=== PATIENT | male | born 1950 | race Caucasian/White ===

== ENCOUNTER 2024-10-08 08:55 | Observation (INO) ==
--- NOTE | 2024-10-08 09:10 | DR.GENAD ---
HPI Time Seen Time Seen by Provider: 10/08/24 09:05 HPI Comment HPI Comment: History as below. COVID-19 Coronavirus risk:travel/contact w/high risk person: No Has patient experienced Coronavirus symptoms: No Nurses notes reviewed Nurses Notes Review: Yes PMH Travel Risk Coronavirus risk:travel/contact w/high risk person: No Has patient experienced Coronavirus symptoms: No PE Vital Signs Vitals: Vital Signs Temperature 98.1 F Pulse Rate 102 Respiratory Rate 22 Blood Pressure 143/62 O2 Sat by Pulse Oximetry 98 ROR Labs Reviewed 10/08/24 09:35 10/08/24 11:58 Laboratory: WBC 19.0 X10^3/uL (3.6-10.0) H 10/08/24 09:35 RBC 3.85 X10^6/uL (4.7-6.0) L 10/08/24 09:35 Hgb 12.2 g/dL (13.5-18.0) L 10/08/24 09:35 Hct 36.4 % (42.0-54.0) L 10/08/24 09:35 MCV 94.6 fL (80.0-100.0) 10/08/24 09:35 MCH 31.7 pg (27.0-34.0) 10/08/24 09:35 MCHC 33.5 g/dL (33.0-35.0) 10/08/24 09:35 RDW 13.4 % (11.6-16.5) 10/08/24 09:35 Plt Count 407 X10^3/uL (150.0-450.0) 10/08/24 09:35 MPV 9.1 fL (7.4-11.0) 10/08/24 09:35 Neut % (Auto) 75.3 % (42.0-75.0) H 10/08/24 09:35 Lymph % (Auto) 9.5 % (21.0-51.0) L 10/08/24 09:35 [place] % (Auto) 12.8 % (0.0-13.0) 10/08/24 09:35 Eos % (Auto) 1.7 % (0.9-2.9) 10/08/24 09:35 Baso % (Auto) 0.7 % (0.2-1.0) 10/08/24 09:35 Neut # (Auto) 14.3 x10^3/uL (2.2-4.8) H 10/08/24 09:35 Lymph # (Auto) 1.8 X10^3/uL (1.3-2.9) 10/08/24 09:35 [place] # (Auto) 2.4 x10^3/uL (0.3-0.8) H 10/08/24 09:35 Eos # (Auto) 0.3 x10^3/uL (0.0-0.2) H 10/08/24 09:35 Baso # (Auto) 0.1 X10^3/uL (0.0-0.1) 10/08/24 09:35 Absolute Nucleated RBC 0.1 /100WBC 10/08/24 09:35 Sodium 122 mmol/L (136-145) L* 10/08/24 09:35 Corrected Sodium 136 mmol/L (136-145) 10/08/24 09:35 Potassium 5.5 mmol/L (3.5-5.1) H 10/08/24 09:35 Chloride 86 mmol/L (98-107) L 10/08/24 09:35 Carbon Dioxide 27.9 mmol/L (21-32) 10/08/24 09:35 BUN 54 mg/dL (7-18) H 10/08/24 09:35 Creatinine 2.83 mg/dL (0.70-1.30) H 10/08/24 09:35 Est GFR (MDRD) Af Amer 28 (>60) L 10/08/24 09:35 Est GFR (MDRD) Non-Af 23 (>60) L 10/08/24 09:35 Glucose 628 mg/dL (65-99) H* 10/08/24 11:58 POC Glucose (mg/dL) 588 mg/dL (65-99) H* 10/08/24 11:50 Calcium 10.3 mg/dL (8.5-10.1) H 10/08/24 09:35 Corrected Calcium 11.0 mg/dL (8.5-10.1) H 10/08/24 09:35 Magnesium 1.9 mg/dL (2.0-2.9) L 10/08/24 09:35 Total Bilirubin 0.40 mg/dL (0.2-1.0) 10/08/24 09:35 AST 16 Units/L (15-37) 10/08/24 09:35 ALT 20 Units/L (12-78) 10/08/24 09:35 Alkaline Phosphatase 131 Units/L (46-116) H 10/08/24 09:35 B-Natriuretic Peptide 51.7 pg/mL (0-79) 10/08/24 09:35 Total Protein 7.0 g/dL (6.4-8.2) 10/08/24 09:35 Albumin 3.1 g/dL (3.4-5.0) L 10/08/24 09:35 Globulin 3.9 g/dL (2.5-4.5) 10/08/24 09:35 Albumin/Globulin Ratio 0.8 Ratio (1.1-2.1) L 10/08/24 09:35 Specimen Type Catherized urine 10/08/24 09:30 Urine Color Straw (YELLOW) 10/08/24 09:30 Urine Appearance Clear (CLEAR) 10/08/24 09:30 Urine pH 5.0 (5.0 - 8.0) 10/08/24 09:30 Ur Specific [place] 1.015 (1.000-1.030) 10/08/24 09:30 Urine Protein 1+ (NEGATIVE) 10/08/24 09:30 Urine Glucose (UA) 4+ (NEGATIVE) 10/08/24 09:30 Urine Ketones Negative (NEGATIVE) 10/08/24 09:30 Urine Blood Negative (NEGATIVE) 10/08/24 09:30 Urine Nitrite Negative (NEGATIVE) 10/08/24 09:30 Urine Bilirubin Negative (NEGATIVE) 10/08/24 09:30 Urine Urobilinogen Normal (NORMAL) 10/08/24 09:30 Ur Leukocyte Esterase Negative (NEGATIVE) 10/08/24 09:30 Urine RBC None seen /HPF (0-3) 10/08/24 09:30 Urine WBC 0-2 /HPF (0-5) 10/08/24 09:30 Ur Squamous Epith Cells Rare /HPF (NEGATIVE) 10/08/24 09:30 Urine Bacteria Negative /HPF (NEGATIVE) 10/08/24 09:30 Ur Culture Indicated? No/not indicated 10/08/24 09:30 Acetone, Semi-Quant Small (NEGATIVE) H 10/08/24 10:52 Opioid Opioid Risk Tool Age (Saul box if 16-45): No History of Preadolescent Sexual Abuse: No Total: 0 Total Score Risk Category: Low Risk Copyright: Hank SANCHEZ predicting aberrant behaviors Discharge Plan Diagnosis Discharge Problem: Hyperosmolar hyperglycemic state (HHS), Hyponatremia, Leukocytosis, Urinary retention Discharge Plan Patient Disposition: 01 HOME, SELF-CARE Condition: Stable Orders to Discharge Patient Discharge Orders: Transfer (Routine); Ordered 10/08/24 Ordered By: GAYE MENDOZA
[2024-10-08 09:39] LABS: BILIRUBIN,URINE NEGATIVE (NEGATIVE); BLOOD/HEMOGLOBIN,URINE NEGATIVE (NEGATIVE); GLUCOSE, URINE 4+ (NEGATIVE); KETONES,URINE NEGATIVE (NEGATIVE); LEUKOCYTE ESTERASE ,URINE NEGATIVE (NEGATIVE); NITRITES,URINE NEGATIVE (NEGATIVE); PROTEIN,URINE 1+ (NEGATIVE); UROBILINOGEN,URINE NORMAL (NORMAL)
[2024-10-08 09:49] LABS: EOSINOPHILS # (AUTO) 0.3 x10^3/uL (0.0-0.2)
[2024-10-08 09:52] LABS: BASOPHILS # (AUTO) 0.1 X10^3/uL (0.0-0.1); BASOPHILS % (AUTO) 0.7 % (0.2-1.0); EOSINOPHILS % (AUTO) 1.7 % (0.9-2.9); HEMATOCRIT 36.4 % (42.0-54.0); HEMOGLOBIN 12.2 g/dL (13.5-18.0); LYMPHOCYTES # (AUTO) 1.8 X10^3/uL (1.3-2.9); LYMPHOCYTES % (AUTO) 9.5 % (21.0-51.0); MEAN CORPUSCULAR HEMOGLOBIN 31.7 pg (27.0-34.0); MEAN CORPUSCULAR HGB CONC 33.5 g/dL (33.0-35.0); MEAN CORPUSCULAR VOLUME 94.6 fL (80.0-100.0); MEAN PLATELET VOLUME 9.1 fL (7.4-11.0); MONOCYTES # (AUTO) 2.4 x10^3/uL (0.3-0.8); MONOCYTES % (AUTO) 12.8 % (0.0-13.0); NEUTROPHILS # (AUTO) 14.3 x10^3/uL (2.2-4.8); NEUTROPHILS % (AUTO) 75.3 % (42.0-75.0); PLATELET COUNT 407 X10^3/uL (150.0-450.0); RED BLOOD COUNT 3.85 X10^6/uL (4.7-6.0); RED CELL DISTRIBUTION WIDTH 13.4 % (11.6-16.5)
[2024-10-08 09:52] LABS: APPEARANCE,URINE CLEAR (CLEAR); BACTERIA,URINE NEGATIVE /HPF (NEGATIVE); COLOR,URINE STRAW (YELLOW); RBC,URINE NONE SEEN /HPF (0-3); SQUAMOUS EPITHELIAL CELL,UR RARE /HPF (NEGATIVE)
[2024-10-08 10:01] LABS: ALBUMIN 3.1 g/dL (3.4-5.0); CALCIUM 10.3 mg/dL (8.5-10.1); CARBON DIOXIDE 27.9 mmol/L (21-32); CREATININE 2.83 mg/dL (0.70-1.30); POTASSIUM 5.5 mmol/L (3.5-5.1)
--- NOTE | 2024-10-08 10:24 | CT ---
EXAM:BRAIN W/O CONHISTORY:IMBALANCE;COMPARISON:None .br.br.br and coronal reformatted images were performed. Dose reduction techniques including Automated Exposure Control (AEC) and adjustment of mA and kV were utilized.FINDINGS:No evidence of acute territorial infarct. No acute intracranial hemorrhage. No evidence of intracranial mass or midline shift. No hydrocephalus. No abnormal intra or extra-axial fluid collections.The calvaria is intact. The bilateral mastoid air cells and visualized paranasal sinuses are well pneumatized. The bilateral orbits are unremarkable.IMPRESSION:No acute intracranial findings.THIS IS AN ELECTRONICALLY VERIFIED FINAL [id number]/2024 10:19 AM - Electronically signed by Alli Roach MD
[2024-10-08] MEDS ORDERED: NovoLIN R (or HumuLIN R) SUBCUT PRN ×2 (10:34→13:22)
[2024-10-08] MEDS ORDERED: NS 1,000 ML IV 1,000 ML ONE (10:39)
[2024-10-08] MEDS: NS 1,000 ML IV 1,000 ML IV ONE (10:46)
[2024-10-08] MEDS: NovoLIN R (or HumuLIN R) SUBCUT ONE (12:10)
[2024-10-08] MEDS: NovoLIN R (or HumuLIN R) IV ONE (12:11)
[2024-10-08] MEDS ORDERED: NORCO 7.5/325 MG TAB ONE (12:58)
[2024-10-08] MEDS: NORCO 7.5/325 MG TAB PO ONE (13:03)
[2024-10-08] MEDS: ROCEPHIN VIAL 1 GRAM IVP ONE (13:12)
[2024-10-08] MEDS: NS 1,000 ML IV 1,000 ML IV SCH ×2 (15:42→18:09)
[2024-10-08 16:45] VITALS: BMI 38.1
[2024-10-08] MEDS: NovoLIN R (or HumuLIN R) SUBCUT PRN (16:52)
[2024-10-08] MEDS ORDERED: SILVADENE ONE (17:39)
[2024-10-08] MEDS ORDERED: HYDROGEN PEROXIDE 3% ONE (17:40)
--- NOTE | 2024-10-08 18:11 | DR.H&P ---
H&P History & Physical for Day of: H&P Date: 10/08/24 Chief Complaint Chief Complaint: AMS, SOB, LEG CELLULITIS History of Present Illness History of Present Illness: PT IS 74 WM, ER ADMISSION WITH CO WEAKNESS, SOB, CONFUSION, BILATERAL LOWER EXTREMITY EDEMA WITH CELLUTLITIS/WOUND. PT HAS BEEN ON BACTRIM LOWER LEG CELLULITIS AND WOUND CARE PER HOME HEALTH. PT WAS HAVING CO DIFFICULTY URINATING AND SPOUSE REPORTED PT WAS CONFUSED. PT WAS INSTRUCTED TO REPORT TO ER PER PCP/HOME HEALTH. PT HAS PMH OF COPD, OA, PVD, HTN, DM AND BPH. PT'S BS WAS ELEVATED >500 ON ADMISSION AND HYPONATREMIA. PT WAS ADMITTED FOR TREATMENT AND EVALUATION OF ACUTE ILNESS. Past Medical History Past Medical History: Arthritis, COPD, Diabetes, Gout, Hypertension, Hypothyroidism and VT Past Surgical History Surgical History: Ortho Surgery Family History Family Medical History: Heart Failure and Hypertension Social History Does patient currently use any type of tobacco product: No Type of Tobacco Use: None Does any household member use tobacco: No Alcohol Use: None Drug Use: None Medications Home Medications: Home Medications Medication Instructions Recorded Confirmed Type allopurinol 300 mg tablet 300 mg PO QDAY 10/08/24 10/08/24 History amitriptyline 10 mg tablet 10 mg PO QPM 10/08/24 10/08/24 History anastrozole 1 mg tablet 1 mg PO QAM 10/08/24 10/08/24 History escitalopram oxalate 10 mg tablet 5 mg PO QDAY 10/08/24 10/08/24 History finasteride 5 mg tablet 5 mg PO QDAY 10/08/24 10/08/24 History gentamicin 0.1 % topical cream 1 applic topical QDAY 10/08/24 10/08/24 History hydrocodone 7.5 mg-acetaminophen 1 tab PO QID PRN 10/08/24 10/08/24 History 325 mg tablet ibuprofen 800 mg tablet 800 mg PO QDAY 10/08/24 10/08/24 History levothyroxine 25 mcg tablet 25 mcg PO QDAY 10/08/24 10/08/24 History lisinopril 5 mg tablet 5 mg PO QDAY blood pressure 10/08/24 10/08/24 History metformin 500 mg tablet 500 mg PO BID 10/08/24 10/08/24 History montelukast 10 mg tablet 10 mg PO QDAY 10/08/24 10/08/24 History ropinirole 1 mg tablet 1 mg PO BID 10/08/24 10/08/24 History sulfamethoxazole 800 1 tab PO BID 10/08/24 10/08/24 History mg-trimethoprim 160 mg tablet Allergies Allergies Allergy/AdvReac Type Severity Reaction Status Date / Time No Known Allergies Allergy Verified 10/08/24 09:12 Labs 10/08/24 09:35 10/08/24 11:58 Labs: 10/08/24 15:54 Leg - Right Wound Gram Stain - Final Laboratory WBC 19.0 X10^3/uL (3.6-10.0) H 10/08/24 09:35 RBC 3.85 X10^6/uL (4.7-6.0) L 10/08/24 09:35 Hgb 12.2 g/dL (13.5-18.0) L 10/08/24 09:35 Hct 36.4 % (42.0-54.0) L 10/08/24 09:35 MCV 94.6 fL (80.0-100.0) 10/08/24 09:35 MCH 31.7 pg (27.0-34.0) 10/08/24 09:35 MCHC 33.5 g/dL (33.0-35.0) 10/08/24 09:35 RDW 13.4 % (11.6-16.5) 10/08/24 09:35 Plt Count 407 X10^3/uL (150.0-450.0) 10/08/24 09:35 MPV 9.1 fL (7.4-11.0) 10/08/24 09:35 Neut % (Auto) 75.3 % (42.0-75.0) H 10/08/24 09:35 Lymph % (Auto) 9.5 % (21.0-51.0) L 10/08/24 09:35 [place] % (Auto) 12.8 % (0.0-13.0) 10/08/24 09:35 Eos % (Auto) 1.7 % (0.9-2.9) 10/08/24 09:35 Baso % (Auto) 0.7 % (0.2-1.0) 10/08/24 09:35 Neut # (Auto) 14.3 x10^3/uL (2.2-4.8) H 10/08/24 09:35 Lymph # (Auto) 1.8 X10^3/uL (1.3-2.9) 10/08/24 09:35 [place] # (Auto) 2.4 x10^3/uL (0.3-0.8) H 10/08/24 09:35 Eos # (Auto) 0.3 x10^3/uL (0.0-0.2) H 10/08/24 09:35 Baso # (Auto) 0.1 X10^3/uL (0.0-0.1) 10/08/24 09:35 Absolute Nucleated RBC 0.1 /100WBC 10/08/24 09:35 Sodium 122 mmol/L (136-145) L* 10/08/24 09:35 Corrected Sodium 136 mmol/L (136-145) 10/08/24 09:35 Potassium 5.5 mmol/L (3.5-5.1) H 10/08/24 09:35 Chloride 86 mmol/L (98-107) L 10/08/24 09:35 Carbon Dioxide 27.9 mmol/L (21-32) 10/08/24 09:35 BUN 54 mg/dL (7-18) H 10/08/24 09:35 Creatinine 2.83 mg/dL (0.70-1.30) H 10/08/24 09:35 Est GFR (MDRD) Af Amer 28 (>60) L 10/08/24 09:35 Est GFR (MDRD) Non-Af 23 (>60) L 10/08/24 09:35 Glucose 628 mg/dL (65-99) H* 10/08/24 11:58 POC Glucose (mg/dL) 407 mg/dL (65-99) H 10/08/24 16:32 Calcium 10.3 mg/dL (8.5-10.1) H 10/08/24 09:35 Corrected Calcium 11.0 mg/dL (8.5-10.1) H 10/08/24 09:35 Magnesium 1.9 mg/dL (2.0-2.9) L 10/08/24 09:35 Total Bilirubin 0.40 mg/dL (0.2-1.0) 10/08/24 09:35 AST 16 Units/L (15-37) 10/08/24 09:35 ALT 20 Units/L (12-78) 10/08/24 09:35 Alkaline Phosphatase 131 Units/L (46-116) H 10/08/24 09:35 B-Natriuretic Peptide 51.7 pg/mL (0-79) 10/08/24 09:35 Total Protein 7.0 g/dL (6.4-8.2) 10/08/24 09:35 Albumin 3.1 g/dL (3.4-5.0) L 10/08/24 09:35 Globulin 3.9 g/dL (2.5-4.5) 10/08/24 09:35 Albumin/Globulin Ratio 0.8 Ratio (1.1-2.1) L 10/08/24 09:35 Specimen Type Catherized urine 10/08/24 09:30 Urine Color Straw (YELLOW) 10/08/24 09:30 Urine Appearance Clear (CLEAR) 10/08/24 09:30 Urine pH 5.0 (5.0 - 8.0) 10/08/24 09:30 Ur Specific [place] 1.015 (1.000-1.030) 10/08/24 09:30 Urine Protein 1+ (NEGATIVE) 10/08/24 09:30 Urine Glucose (UA) 4+ (NEGATIVE) 10/08/24 09:30 Urine Ketones Negative (NEGATIVE) 10/08/24 09:30 Urine Blood Negative (NEGATIVE) 10/08/24:30 Urine Nitrite Negative (NEGATIVE) 10/08/24 09:30 Urine Bilirubin Negative (NEGATIVE) 10/08/24 09:30 Urine Urobilinogen Normal (NORMAL) 10/08/24 09:30 Ur Leukocyte Esterase Negative (NEGATIVE) 10/08/24 09:30 Urine RBC None seen /HPF (0-3) 10/08/24:30 Urine WBC 0-2 /HPF (0-5) 10/08/24 09:30 Ur Squamous Epith Cells Rare /HPF (NEGATIVE) 10/08/24 09:30 Urine Bacteria Negative /HPF (NEGATIVE) 10/08/24 09:30 Ur Culture Indicated? No/not indicated 10/08/24: Acetone, Semi-Quant Small (NEGATIVE) H 10/08/24 10:52 Review of Systems Constitutional: Sweats and Weakness Eyes: No Symptoms Reported ENT: No Symptoms Reported Respiratory: Shortness of Breath Cardiovascular: Edema Gastrointestinal: Nausea Genitourinary: Retention Musculoskeletal: Back Pain and Leg Pain Skin: Wound Neurological: Confusion Physical Exam Vital Signs: Vital Signs Temperature 98.0 F Temperature 97.8 F Temperature 98.4 F Pulse Rate [Left Radial] 96 Pulse Rate [Left Radial] 99 Pulse Rate [Left Radial] 92 Respiratory Rate 18 Respiratory Rate 22 Respiratory Rate 20 Respiratory Rate 22 Blood Pressure [Right Arm] 137/77 Blood Pressure [Right Arm] 153/74 O2 Sat by Pulse Oximetry 95 O2 Sat by Pulse Oximetry 99 O2 Sat by Pulse Oximetry 97 Oriented: Person Eyes: Normal Ear: Normal Nose: Normal Throat: Normal Respiratory: Diminished Throughout Cardiovascular: Tachycardia : Other (RETENTION) Palpation: Normal Tenderness: Diffuse and Mild Skin: Decreased [place], Red, Tender and Wound Musculoskeletal: Back:Thoracic, Back:Lumbar, Swelling and Motor Deficit Affect: Flat Speech Pattern: Delayed Assessment/Plan (1) AMS (altered mental status): Status: Acute Plan: ADMIT, CT HEAD ON ADMISSION BC AND UC BP CONTROL, IV HYDRATION WITH CONNOLLY CATH WITH STRICT I&OS BS CONTROL WITH INSULIN IV ATBX, VERIFY HOME MEDICATIONS (2) Hyponatremia: Status: Acute (3) Leukocytosis: Status: Acute (4) Urinary retention: Status: Acute (5) Acute renal failure (ARF): Status: Acute (6) Bilateral lower leg cellulitis: Status: Acute
--- NOTE | 2024-10-08 18:33 | VAS ---
EXAM: LOWER EXT VENOUS, BILATERAL HISTORY: BILAT EDEMA, LEUKOCYTOSIS; COMPARISON: None available. TECHNIQUE: Multiple will scale and color flow Doppler images of the deep venous system were obtained of the righ t and left lower extremity. FINDINGS: The deep venous system of the right and left lower extremities were evaluated from the level of the c ommon femoral vein through the popliteal vein. Normal color flow and augmentation can be observed. In addition, normal compression is seen throughout the deep venous system. IMPRESSION: Negative for DVT. THIS IS AN ELECTRONICALLY VERIFIED FINAL REPORT 10/08/2024 6:29 PM - Electronically signed by Julio Calderón MD
[2024-10-08] MEDS: HYDROGEN PEROXIDE 3% EXT SCH (18:44)
[2024-10-08] MEDS: SILVADENE TOP SCH (18:45)
[2024-10-08 19:20] LABS: CALCIUM 10.5 mg/dL (8.5-10.1); CREATININE 2.56 mg/dL (0.70-1.30); POTASSIUM 5.4 mmol/L (3.5-5.1)
[2024-10-08] MEDS ORDERED: PULMICORT NEB TX 0.5 MG NEB ONE (19:35)
[2024-10-08] MEDS ORDERED: DUONEB 0.5 MG/3 MG (3 mL) NEB ONE (19:35)
[2024-10-08] MEDS ORDERED: SNACK - Diabetic Appropriate PO SCH ×3 (20:00)
[2024-10-08] MEDS: DUONEB 0.5 MG/3 MG (3 mL) NEB SCH (20:33)
[2024-10-08] MEDS: PULMICORT NEB TX 0.5 MG NEB SCH (20:33)
[2024-10-08] MEDS: ELAVIL PO SCH (20:45)
[2024-10-08] MEDS: REQUIP PO SCH (20:46)
[2024-10-08] MEDS: NORCO 7.5/325 MG TAB PO PRN (20:46)
[2024-10-08] MEDS: SNACK - Diabetic Appropriate PO SCH (20:53)
[2024-10-08] MEDS ORDERED: PULMICORT NEB TX 0.5 MG NEB SCH (21:00)
[2024-10-08] MEDS ORDERED: DUONEB 0.5 MG/3 MG (3 mL) NEB SCH (21:00)
--- NOTE | 2024-10-08 21:27 | RAD ---
EXAM:CHEST, 1 VIEWHISTORY:SOB;COMPARISON:None. r.br.br.br.br.br.br normal. The aorta is tortuous. The pulmonary blood flow is normal. Lungs are grossly clear. There is some elevation of the right hemidiaphragm suggesting some mild right base atelectasis. There is no pleural effusion or pneumothorax.IMPRESSION:Mild right base atelectasis. Otherwise negative.THIS IS AN ELECTRONICALLY VERIFIED FINAL [id number]/2024 9:24 PM - Electronically signed by Heri Yao MD
[2024-10-08] MEDS: PROSCAR PO SCH (22:01)
[2024-10-09 05:59] LABS: BASOPHILS # (AUTO) 0.1 X10^3/uL (0.0-0.1); BASOPHILS % (AUTO) 0.6 % (0.2-1.0); EOSINOPHILS # (AUTO) 0.4 x10^3/uL (0.0-0.2); EOSINOPHILS % (AUTO) 2.4 % (0.9-2.9); HEMATOCRIT 35.4 % (42.0-54.0); HEMOGLOBIN 12.1 g/dL (13.5-18.0); LYMPHOCYTES # (AUTO) 2.5 X10^3/uL (1.3-2.9); LYMPHOCYTES % (AUTO) 14.6 % (21.0-51.0); MEAN CORPUSCULAR HEMOGLOBIN 31.9 pg (27.0-34.0); MEAN CORPUSCULAR HGB CONC 34.3 g/dL (33.0-35.0); MEAN PLATELET VOLUME 9.3 fL (7.4-11.0); NEUTROPHILS % (AUTO) 70.4 % (42.0-75.0); PLATELET COUNT 424 X10^3/uL (150.0-450.0); RED BLOOD COUNT 3.81 X10^6/uL (4.7-6.0); RED CELL DISTRIBUTION WIDTH 13.3 % (11.6-16.5); WHITE BLOOD COUNT 17.1 X10^3/uL (3.6-10.0)
[2024-10-09 06:26] LABS: ALBUMIN 2.8 g/dL (3.4-5.0); CARBON DIOXIDE 28.3 mmol/L (21-32); CREATININE 2.13 mg/dL (0.70-1.30); POTASSIUM 4.6 mmol/L (3.5-5.1); TOTAL PROTEIN 6.6 g/dL (6.4-8.2)
[2024-10-09] MEDS ORDERED: LEXAPRO ONE (08:55)
[2024-10-09] MEDS: ROCEPHIN VIAL 1 GRAM 1 G in NS 100 ML IV 100 ML IV SCH (08:56)
[2024-10-09] MEDS: LASIX IVP ONE (09:24)
[2024-10-09] MEDS: SINGULAIR TAB 10 MG PO SCH (09:25)
[2024-10-09] MEDS: LEXAPRO PO SCH (09:26)
[2024-10-09] MEDS: ZESTRIL TAB 5 MG PO SCH (09:26)
[2024-10-09] MEDS: LOVENOX INJ 40 MG SYR SC SCH (10:30)
[2024-10-09] MEDS: SYNTHROID 25 mcg TAB PO SCH (11:45)
[2024-10-09 16:22] LABS: BILIRUBIN,URINE NEGATIVE (NEGATIVE); BLOOD/HEMOGLOBIN,URINE 5+ (NEGATIVE); GLUCOSE, URINE 4+ (NEGATIVE); KETONES,URINE NEGATIVE (NEGATIVE); LEUKOCYTE ESTERASE ,URINE NEGATIVE (NEGATIVE); NITRITES,URINE NEGATIVE (NEGATIVE); PROTEIN,URINE 2+ (NEGATIVE); UROBILINOGEN,URINE NORMAL (NORMAL)
[2024-10-09 16:28] LABS: APPEARANCE,URINE SLIGHTLY HAZY (CLEAR); COLOR,URINE YELLOW (YELLOW)
[2024-10-09 16:29] LABS: BACTERIA,URINE 1+ /HPF (NEGATIVE); SQUAMOUS EPITHELIAL CELL,UR FEW /HPF (NEGATIVE)
[2024-10-09 16:30] LABS: HYALINE CASTS, URINE FEW /LPF (NEGATIVE)
--- NOTE | 2024-10-09 17:26 | DR.PROGNOT ---
HOSPITAL PROGRESS NOTE Progress Note for Day of: Progress Note Date: 10/09/24 Chief Complaint Chief Complaint: Cellulitis right lower extremity is the same with slight improvement, wound culture is negative so far. Doppler study did not reveal any evidence of DVT. BUN and creatinine still elevated 42 and 2.1, blood sugar 574 with A1c more than 16. Patient is still having shortness of breath but alert. Past Medical Family Social History Past Med/Fam/Surg Hx: No changes since H&P Allergies: Allergies No Known Allergies Allergy (Verified 10/08/24 09:12) Vital Signs Vital Signs: Vital Signs Temperature 97.7 F Temperature 98.6 F Pulse Rate [Left Radial] 96 Pulse Rate [Left Radial] 57 Respiratory Rate 18 Respiratory Rate 16 Respiratory Rate 20 Blood Pressure [Left Arm] 112/56 Blood Pressure [Right Arm] 150/69 O2 Sat by Pulse Oximetry 97 O2 Sat by Pulse Oximetry 94 Physical Exam Oriented: Person Eyes: Normal Ear: Normal Nose: Normal Throat: Normal Cardiovascular: Tachycardia : Other (RETENTION) GI:Palpation: Normal GI: Tenderness: Diffuse and Mild Skin: Decreased Turgur, Red, Tender, Wound and Other (Cellulitis right leg with circumferential ulceration above the ankle . no necrosis or abscess formation..) Musculoskeletal: Back:Thoracic, Back:Lumbar, Swelling and Motor Deficit Affect: Flat Speech Pattern: Clear and Appropriate Laboratory and Diagnostics 10/09/24 05:23 10/09/24 16:32 Labs: 10/08/24 15:54 Leg - Right Wound Gram Stain - Final 10/08/24 15:54 Leg - Right Wound Culture - Preliminary Laboratory WBC 17.1 X10^3/uL (3.6-10.0) H 10/09/24 05:23 RBC 3.81 X10^6/uL (4.7-6.0) L 10/09/24 05:23 Hgb 12.1 g/dL (13.5-18.0) L 10/09/24 05:23 Hct 35.4 % (42.0-54.0) L 10/09/24 05:23 MCV 93.0 fL (80.0-100.0) 10/09/24 05:23 MCH 31.9 pg (27.0-34.0) 10/09/24 05:23 MCHC 34.3 g/dL (33.0-35.0) 10/09/24 05:23 RDW 13.3 % (11.6-16.5) 10/09/24 05:23 Plt Count 424 X10^3/uL (150.0-450.0) 10/09/24 05:23 MPV 9.3 fL (7.4-11.0) 10/09/24 05:23 Neut % (Auto) 70.4 % (42.0-75.0) 10/09/24 05:23 Lymph % (Auto) 14.6 % (21.0-51.0) L 10/09/24 05:23 [place] % (Auto) 12.0 % (0.0-13.0) 10/09/24 05:23 Eos % (Auto) 2.4 % (0.9-2.9) 10/09/24 05:23 Baso % (Auto) 0.6 % (0.2-1.0) 10/09/24 05:23 Neut # (Auto) 12.0 x10^3/uL (2.2-4.8) H 10/09/24 05:23 Lymph # (Auto) 2.5 X10^3/uL (1.3-2.9) 10/09/24 05:23 [place] # (Auto) 2.0 x10^3/uL (0.3-0.8) H 10/09/24 05:23 Eos # (Auto) 0.4 x10^3/uL (0.0-0.2) H 10/09/24 05:23 Baso # (Auto) 0.1 X10^3/uL (0.0-0.1) 10/09/24 05:23 Absolute Nucleated RBC 0.0 /100WBC 10/09/24 05:23 Sodium 134 mmol/L (136-145) L 10/09/24 05:23 Corrected Sodium 138 mmol/L (136-145) 10/09/24 05:23 Potassium 4.6 mmol/L (3.5-5.1) 10/09/24 05:23 Chloride 97 mmol/L (98-107) L 10/09/24 05:23 Carbon Dioxide 28.3 mmol/L (21-32) 10/09/24 05:23 BUN 42 mg/dL (7-18) H 10/09/24 05:23 Creatinine 2.13 mg/dL (0.70-1.30) H 10/09/24 05:23 Est GFR (MDRD) Af Amer 39 (>60) L 10/09/24 05:23 Est GFR (MDRD) Non-Af 33 (>60) L 10/09/24 05:23 Glucose 574 mg/dL (65-99) H* 10/09/24 16:32 POC Glucose (mg/dL) 531 mg/dL (65-99) H* 10/09/24 16:15 Hemoglobin A1c > 16.0 % 10/09/24 05:23 Calcium 10.0 mg/dL (8.5-10.1) 10/09/24 05:23 Corrected Calcium 11.0 mg/dL (8.5-10.1) H 10/09/24 05:23 Magnesium 1.9 mg/dL (2.0-2.9) L 10/08/24 09:35 Total Bilirubin 0.40 mg/dL (0.2-1.0) 10/09/24 05:23 AST 24 Units/L (15-37) 10/09/24 05:23 ALT 19 Units/L (12-78) 10/09/24 05:23 Alkaline Phosphatase 126 Units/L (46-116) H 10/09/24 05:23 B-Natriuretic Peptide 51.7 pg/mL (0-79) 10/08/24 09:35 Total Protein 6.6 g/dL (6.4-8.2) 10/09/24 05:23 Albumin 2.8 g/dL (3.4-5.0) L 10/09/24 05:23 Globulin 3.8 g/dL (2.5-4.5) 10/09/24 05:23 Albumin/Globulin Ratio 0.7 Ratio (1.1-2.1) L 10/09/24 05:23 Specimen Type Catherized urine 10/09/24 13:52 Urine Color Yellow (YELLOW) 10/09/24 13:52 Urine Appearance Slightly hazy (CLEAR) 10/09/24 13:52 Urine pH 5.0 (5.0 - 8.0) 10/09/24 13:52 Ur Specific [place] 1.015 (1.000-1.030) 10/09/24 13:52 Urine Protein 2+ (NEGATIVE) 10/09/24 13:52 Urine Glucose (UA) 4+ (NEGATIVE) 10/09/24 13:52 Urine Ketones Negative (NEGATIVE) 10/09/24 13:52 Urine Blood 5+ (NEGATIVE) 10/09/24 13:52 Urine Nitrite Negative (NEGATIVE) 10/09/24 13:52 Urine Bilirubin Negative (NEGATIVE) 10/09/24 13:52 Urine Urobilinogen Normal (NORMAL) 10/09/24 13:52 Ur Leukocyte Esterase Negative (NEGATIVE) 10/09/24 13:52 Urine RBC 10-20 /HPF (0-3) A 10/09/24 13:52 Urine WBC 0-2 /HPF (0-5) 10/09/24 13:52 Ur Squamous Epith Cells Few /HPF (NEGATIVE) 10/09/24 13:52 Amorphous Sediment 1+ /HPF (NEGATIVE) 10/09/24 13:52 Urine Bacteria 1+ /HPF (NEGATIVE) 10/09/24 13:52 Hyaline Casts Few /LPF (NEGATIVE) 10/09/24 13:52 Urine Mucus Few /HPF (NEGATIVE) 10/09/24 13:52 Ur Culture Indicated? Yes/culture set up 10/09/24 13:52 Acetone, Semi-Quant Small (NEGATIVE) H 10/08/24 10:52 Assessment and Plan 1: Cellulitis with ulceration right lower extremity. To continue cleansing with peroxide and saline then application of Silvadene cream and keep the wound open to air. DVT prophylaxis and IV antibiotics. 2: Diabetes mellitus. Same medical management 3: Chronic kidney disease and UTI. Same IV antibiotics and medical management. Problem Patient Problems: Patient Problems (Updated 10/08/24 @ 18:10 by MARCEL CONNER) Hyperosmolar hyperglycemic state (HHS) (Acute) E11.00 Hyponatremia (Acute) E87.1 Leukocytosis (Acute) D72.829 Urinary retention (Acute) R33.9
[2024-10-09] MEDS: LANTUS SC SCH (20:42)
[2024-10-09] MEDS: SNACK - Diabetic Appropriate PO SCH (21:04)
[2024-10-10 06:06] LABS: BASOPHILS # (AUTO) 0.1 X10^3/uL (0.0-0.1); BASOPHILS % (AUTO) 0.5 % (0.2-1.0); EOSINOPHILS # (AUTO) 0.4 x10^3/uL (0.0-0.2); EOSINOPHILS % (AUTO) 2.6 % (0.9-2.9); HEMATOCRIT 34.1 % (42.0-54.0); HEMOGLOBIN 11.6 g/dL (13.5-18.0); LYMPHOCYTES # (AUTO) 2.1 X10^3/uL (1.3-2.9); LYMPHOCYTES % (AUTO) 14.8 % (21.0-51.0); MEAN CORPUSCULAR HEMOGLOBIN 31.7 pg (27.0-34.0); MEAN CORPUSCULAR HGB CONC 34.1 g/dL (33.0-35.0); MEAN CORPUSCULAR VOLUME 93.2 fL (80.0-100.0); MEAN PLATELET VOLUME 9.2 fL (7.4-11.0); MONOCYTES # (AUTO) 1.3 x10^3/uL (0.3-0.8); MONOCYTES % (AUTO) 9.1 % (0.0-13.0); NEUTROPHILS # (AUTO) 10.6 x10^3/uL (2.2-4.8); PLATELET COUNT 456 X10^3/uL (150.0-450.0); RED BLOOD COUNT 3.66 X10^6/uL (4.7-6.0); RED CELL DISTRIBUTION WIDTH 13.3 % (11.6-16.5); WHITE BLOOD COUNT 14.5 X10^3/uL (3.6-10.0)
[2024-10-10 06:12] LABS: ALBUMIN 2.5 g/dL (3.4-5.0); CALCIUM 9.4 mg/dL (8.5-10.1); CARBON DIOXIDE 29.1 mmol/L (21-32); COR CA(FOR HYPOALB) 10.6 mg/dL (8.5-10.1); CREATININE 2.24 mg/dL (0.70-1.30); POTASSIUM 4.7 mmol/L (3.5-5.1); TOTAL PROTEIN 6.1 g/dL (6.4-8.2)
[2024-10-10] MEDS: KLONOPIN TAB 0.5 MG PO PRN (08:50)
[2024-10-10] MEDS: LEXAPRO ONE (08:52)
[2024-10-10] MEDS: MORPHINE SULFATE INJ 2 MG INJ IVP PRN (09:22)
[2024-10-10] MEDS: NORCO 7.5/325 MG TAB PO SCH (11:53)
[2024-10-10] MEDS: NEURONTIN CAP 100 MG PO SCH (11:53)
[2024-10-10] MEDS: MILK OF MAGNESIA PO SCH (11:53)
[2024-10-10] MEDS: DULCOLAX SUPPOSITORY 10 MG RECTAL ONE (11:54)
[2024-10-10] MEDS: KLONOPIN TAB 0.5 MG PO SCH (15:52)
[2024-10-10] MEDS: RESTORIL CAP 15 MG PO SCH (21:36)
[2024-10-11 06:40] LABS: BASOPHILS # (AUTO) 0.2 X10^3/uL (0.0-0.1); EOSINOPHILS # (AUTO) 0.3 x10^3/uL (0.0-0.2); EOSINOPHILS % (AUTO) 1.6 % (0.9-2.9); HEMOGLOBIN 10.9 g/dL (13.5-18.0); LYMPHOCYTES # (AUTO) 2.3 X10^3/uL (1.3-2.9); LYMPHOCYTES % (AUTO) 13.7 % (21.0-51.0); MEAN CORPUSCULAR HEMOGLOBIN 32.2 pg (27.0-34.0); MEAN CORPUSCULAR HGB CONC 34.2 g/dL (33.0-35.0); MEAN CORPUSCULAR VOLUME 94.2 fL (80.0-100.0); MONOCYTES # (AUTO) 1.5 x10^3/uL (0.3-0.8); MONOCYTES % (AUTO) 8.9 % (0.0-13.0); NEUTROPHILS # (AUTO) 12.6 x10^3/uL (2.2-4.8); NEUTROPHILS % (AUTO) 74.8 % (42.0-75.0); PLATELET COUNT 459 X10^3/uL (150.0-450.0); RED BLOOD COUNT 3.39 X10^6/uL (4.7-6.0); RED CELL DISTRIBUTION WIDTH 13.2 % (11.6-16.5); WHITE BLOOD COUNT 16.8 X10^3/uL (3.6-10.0)
[2024-10-11 06:50] LABS: ALBUMIN 2.2 g/dL (3.4-5.0); CALCIUM 8.7 mg/dL (8.5-10.1); COR CA(FOR HYPOALB) 10.1 mg/dL (8.5-10.1); CREATININE 3.15 mg/dL (0.70-1.30); POTASSIUM 5.2 mmol/L (3.5-5.1); TOTAL PROTEIN 5.9 g/dL (6.4-8.2)
[2024-10-11] MEDS: LEXAPRO ONE (08:44)
[2024-10-11] MEDS: CIPRO IV 400 MG PREMIX* 400 MG/200 ML IV.SOLN. IV SCH (14:46)
[2024-10-11] MEDS: NS 1,000 ML IV 1,000 ML IV SCH (14:47)
--- NOTE | 2024-10-11 18:18 | PCM.PROG ---
Progress Note Progress Note for Day of Date of Exam: 10/11/24 Subjective Subjective: Patient is a type 2 diabetic on metformin. He has a history of leg infections. Baseline creatinine was 1.38 on May 06, 2024. Patient was admitted on 10-08-2024 for a right leg infection. Currently, this morning he is somewhat confused and this is new according to the charge nurse who indicates that yesterday he did not have confusion. She does note that yesterday he was started on scheduled clonazepam and hydrocodone which she feels like is probably contributed to his change in mental status since yesterday. Clinical observations: 1. The patient presents with a leg infection to his right lower extremity. 2. Wound culture grew Pseudomonas aeruginosa, susceptible to all listed antibiotics listed (Rocephin not listed) 3. White blood cell count increased from 14,500 yesterday to 16,800 today 4. Neutrophil count: 74.8% (normal), but neutrophil auto count high at 12.6 5. Mildly hyponatremic with sodium 135 (corrected) 6. Hyperkalemic with potassium 5.02 7. Creatinine increased from 1.38 on May 06, 2024 to 3.15 this morning 8. Estimated GFR: 21 9. Urine culture shows no growth 10. Blood cultures (first and second) are negative 11. BNP on 10-10 was 82.7 12. Vitals are stable 13. O2 saturation 96% on 3L nasal cannula (decreased from 4L yesterday and on admission) Past Medical Family Social History Past Med/Fam/Surg Hx: No changes since H&P Allergies: Allergies No Known Allergies Allergy (Verified 10/08/24 09:12) Review of Systems ROS: No change since H&P Vital Signs and I&O's Vital Signs: Vital Signs Temperature 97.9 F Temperature 99.5 F Pulse Rate [Left Radial] 97 Pulse Rate [Left Radial] 97 Respiratory Rate 21 Respiratory Rate 20 Blood Pressure [Left Arm] 124/60 Blood Pressure [Left Arm] 128/50 O2 Sat by Pulse Oximetry 98 O2 Sat by Pulse Oximetry 100 Intake and Output: Intake & Output 10/09/24 10/10/24 10/11/24 10/12/24 11:59 11:59 11:59 11:59 Intake Total 480 / 480 3970 / 3970 2703 / 2703 Output Total 2800 / 2800 3800 / 3800 500 / 500 900 / 900 Balance -2320 / -2320 170 / 170 2203 / 2203 -900 / -900 Physical Exam Oriented: Not Oriented Eyes: Normal Ear: Normal Nose: Normal Throat: Normal Respiratory: Normal Cardiovascular: Tachycardia : Other (RETENTION) Tenderness: Diffuse and Mild Skin: Decreased Turgur, Red, Tender, Wound and Other (Cellulitis right leg with circumferential ulceration above the ankle . no necrosis or abscess formation..) Musculoskeletal: Back:Thoracic, Back:Lumbar, Swelling and Motor Deficit Affect: Flat Speech Pattern: Clear and Appropriate Laboratory and Diagnostics 10/11/24 05:47 10/11/24 05:47 Labs: 10/09/24 13:52 Urine,Storm Port Urine Culture - Final 10/08/24 15:54 Leg - Right Wound Gram Stain - Final 10/08/24 15:54 Leg - Right Wound Culture - Final Pseudomonas Aeruginosa 10/08/24 13:15 Blood Blood Culture - Preliminary 10/08/24 13:08 Blood Blood Culture - Preliminary Laboratory WBC 16.8 X10^3/uL (3.6-10.0) H 10/11/24 05:47 RBC 3.39 X10^6/uL (4.7-6.0) L 10/11/24 05:47 Hgb 10.9 g/dL (13.5-18.0) L 10/11/24 05:47 Hct 32.0 % (42.0-54.0) L 10/11/24 05:47 MCV 94.2 fL (80.0-100.0) 10/11/24 05:47 MCH 32.2 pg (27.0-34.0) 10/11/24 05:47 MCHC 34.2 g/dL (33.0-35.0) 10/11/24 05:47 RDW 13.2 % (11.6-16.5) 10/11/24 05:47 Plt Count 459 X10^3/uL (150.0-450.0) H 10/11/24 05:47 MPV 9.0 fL (7.4-11.0) 10/11/24 05:47 Neut % (Auto) 74.8 % (42.0-75.0) 10/11/24 05:47 Lymph % (Auto) 13.7 % (21.0-51.0) L 10/11/24 05:47 [place] % (Auto) 8.9 % (0.0-13.0) 10/11/24 05:47 Eos % (Auto) 1.6 % (0.9-2.9) 10/11/24 05:47 Baso % (Auto) 1.0 % (0.2-1.0) 10/11/24 05:47 Neut # (Auto) 12.6 x10^3/uL (2.2-4.8) H 10/11/24 05:47 Lymph # (Auto) 2.3 X10^3/uL (1.3-2.9) 10/11/24 05:47 [place] # (Auto) 1.5 x10^3/uL (0.3-0.8) H 10/11/24 05:47 Eos # (Auto) 0.3 x10^3/uL (0.0-0.2) H 10/11/24 05:47 Baso # (Auto) 0.2 X10^3/uL (0.0-0.1) H 10/11/24 05:47 Absolute Nucleated RBC 0.1 /100WBC 10/11/24 05:47 ESR 62 MM/HOUR (0-15) H 10/11/24 13:38 Sodium 131 mmol/L (136-145) L 10/11/24 05:47 Corrected Sodium 135 mmol/L (136-145) L 10/11/24 05:47 Potassium 5.2 mmol/L (3.5-5.1) H 10/11/24 05:47 Chloride 98 mmol/L (98-107) 10/11/24 05:47 Carbon Dioxide 28.0 mmol/L (21-32) 10/11/24 05:47 BUN 49 mg/dL (7-18) H 10/11/24 05:47 Creatinine 3.15 mg/dL (0.70-1.30) H 10/11/24 05:47 Est GFR (MDRD) Af Amer 25 (>60) L 10/11/24 05:47 Est GFR (MDRD) Non-Af 21 (>60) L 10/11/24 05:47 Glucose 276 mg/dL (65-99) H 10/11/24 05:47 POC Glucose (mg/dL) 297 mg/dL (65-99) H 10/11/24 17:25 Hemoglobin A1c > 16.0 % 10/09/24 05:23 Calcium 8.7 mg/dL (8.5-10.1) 10/11/24 05:47 Corrected Calcium 10.1 mg/dL (8.5-10.1) 10/11/24 05:47 Magnesium 2.0 mg/dL (2.0-2.9) 10/11/24 05:47 Total Bilirubin 0.40 mg/dL (0.2-1.0) 10/11/24 05:47 AST 74 Units/L (15-37) H 10/11/24 05:47 ALT 51 Units/L (12-78) 10/11/24 05:47 Alkaline Phosphatase 273 Units/L (46-116) H 10/11/24 05:47 C-Reactive Protein 177.10 mg/L (0-3.0) H 10/11/24 13:38 B-Natriuretic Peptide 112 pg/mL (0-79) H 10/11/24 13:38 Total Protein 5.9 g/dL (6.4-8.2) L 10/11/24 05:47 Albumin 2.2 g/dL (3.4-5.0) L 10/11/24 05:47 Globulin 3.7 g/dL (2.5-4.5) 10/11/24 05:47 Albumin/Globulin Ratio 0.6 Ratio (1.1-2.1) L 10/11/24 05:47 Specimen Type Catherized urine 10/09/24 13:52 Urine Color Yellow (YELLOW) 10/09/24 13:52 Urine Appearance Slightly hazy (CLEAR) 10/09/24 13:52 Urine pH 5.0 (5.0 - 8.0) 10/09/24 13:52 Ur Specific [place] 1.015 (1.000-1.030) 10/09/24 13:52 Urine Protein 2+ (NEGATIVE) 10/09/24 13:52 Urine Glucose (UA) 4+ (NEGATIVE) 10/09/24 13:52 Urine Ketones Negative (NEGATIVE) 10/09/24 13:52 Urine Blood 5+ (NEGATIVE) 10/09/24 13:52 Urine Nitrite Negative (NEGATIVE) 10/09/24 13:52 Urine Bilirubin Negative (NEGATIVE) 10/09/24 13:52 Urine Urobilinogen Normal (NORMAL) 10/09/24 13:52 Ur Leukocyte Esterase Negative (NEGATIVE) 10/09/24 13:52 Urine RBC 10-20 /HPF (0-3) A 10/09/24 13:52 Urine WBC 0-2 /HPF (0-5) 10/09/24 13:52 Ur Squamous Epith Cells Few /HPF (NEGATIVE) 10/09/24 13:52 Amorphous Sediment 1+ /HPF (NEGATIVE) 10/09/24 13:52 Urine Bacteria 1+ /HPF (NEGATIVE) 10/09/24 13:52 Hyaline Casts Few /LPF (NEGATIVE) 10/09/24 13:52 Urine Mucus Few /HPF (NEGATIVE) 10/09/24 13:52 Ur Culture Indicated? Yes/culture set up 10/09/24 13:52 Acetone, Semi-Quant Small (NEGATIVE) H 10/08/24 10:52 Plan (1) AMS (altered mental status): Status: Acute Narrative Support Text: Positive audiovisual hallucinations this morning and over the last 1 to 2 weeks she states. Plan: I will change the patient's opioid pain medicine and clonazepam to as needed from scheduled dosing this morning. I will start him on Seroquel 25 mg p.o. every morning and 50 mg at bedtime to see if this helps improve his hallucinations. (2) Hyponatremia: Status: Acute Plan: Continue normal saline IV hydration to correct the patient's hyponatremia. (3) Leukocytosis: Status: Acute (4) Urinary retention: Status: Acute (5) Acute renal failure (ARF): Status: Acute Plan: 1. Pharmacy consultation to make sure all medications are renally dosed to help preserve the patient's baseline kidney function. 2. Repeat daily CMP's. 3. Continue slow IV hydration with normal saline. (6) Bilateral lower leg cellulitis: Status: Acute Plan: 1. Discontinue Rocephin 2. Start Ciprofloxacin 200 mg IV Q48 hours (pending pharmacy consult for renal dosing) 3. Continue topical silver sulfadiazine 4. Increase normal saline from 80 to 125 mL/hr 5. Daily BNAT to monitor fluid status 6. Daily ESR and CRP tests 7. Repeat BNP today and tomorrow 8. Daily chest x-rays to monitor for fluid overload 9. Pharmacy consult for medication review and renal dosing 10. Continue monitoring renal function and adjust medications as needed (7) Hyperkalemia: Status: Acute Plan: 1. Discontinue lisinopril 5 mg daily. 2. Repeat CMP tomorrow morning to see if the patient's hyperkalemia has resolved.
[2024-10-11] MEDS: NORCO 7.5/325 MG TAB PO PRN (21:03)
[2024-10-11] MEDS: SEROquel TAB 25 mg PO SCH (21:03)
[2024-10-12] MEDS: TYLENOL 325 MG TAB PO PRN (04:48)
[2024-10-12 06:01] LABS: BASOPHILS # (AUTO) 0.1 X10^3/uL (0.0-0.1); BASOPHILS % (AUTO) 0.5 % (0.2-1.0); EOSINOPHILS # (AUTO) 0.2 x10^3/uL (0.0-0.2); EOSINOPHILS % (AUTO) 0.9 % (0.9-2.9); HEMATOCRIT 31.5 % (42.0-54.0); HEMOGLOBIN 10.5 g/dL (13.5-18.0); LYMPHOCYTES # (AUTO) 1.4 X10^3/uL (1.3-2.9); LYMPHOCYTES % (AUTO) 8.3 % (21.0-51.0); MEAN CORPUSCULAR HEMOGLOBIN 31.9 pg (27.0-34.0); MEAN CORPUSCULAR HGB CONC 33.4 g/dL (33.0-35.0); MEAN CORPUSCULAR VOLUME 95.4 fL (80.0-100.0); MEAN PLATELET VOLUME 8.8 fL (7.4-11.0); MONOCYTES # (AUTO) 1.7 x10^3/uL (0.3-0.8); NEUTROPHILS # (AUTO) 13.9 x10^3/uL (2.2-4.8); NEUTROPHILS % (AUTO) 80.3 % (42.0-75.0); PLATELET COUNT 443 X10^3/uL (150.0-450.0); RED BLOOD COUNT 3.31 X10^6/uL (4.7-6.0); RED CELL DISTRIBUTION WIDTH 13.4 % (11.6-16.5); WHITE BLOOD COUNT 17.3 X10^3/uL (3.6-10.0)
[2024-10-12 06:07] LABS: ERYTHROCYTE SEDIMENTATION RATE 62 MM/HOUR (0-15)
[2024-10-12 06:12] LABS: ALBUMIN 2.1 g/dL (3.4-5.0); CALCIUM 8.7 mg/dL (8.5-10.1); CARBON DIOXIDE 28.2 mmol/L (21-32); COR CA(FOR HYPOALB) 10.2 mg/dL (8.5-10.1); CREATININE 2.06 mg/dL (0.70-1.30); POTASSIUM 5.8 mmol/L (3.5-5.1); TOTAL PROTEIN 5.9 g/dL (6.4-8.2)
--- NOTE | 2024-10-12 08:16 | RAD ---
EXAM: AP chest HISTORY: Leukocytosis COMPARISON: 10/08/2024 FINDINGS: Image is technically limited by significant patient rotation. Apparent diaphragm elevation on the r ight is noted, but this can be simulated by a subpulmonic effusion. The heart is partly obscured but not obviously enlarged. The left lung is clear. IMPRESSION: Findings suggest elevated right diaphragm or right pleural effusion. Follow-up suggested. THIS IS AN ELECTRONICALLY VERIFIED FINAL REPORT 10/12/2024 8:13 AM - Electronically signed by Goldy Rivera MD
[2024-10-12] MEDS: LOVENOX INJ 30 MG SYR SC SCH (09:37)
[2024-10-12] MEDS: SEROquel TAB 25 mg PO SCH (09:37)
[2024-10-12] MEDS: MAXIPIME VIAL 2 GRAMS 2 G in NS 100 ML IV 100 ML IV SCH (14:47)
[2024-10-12] MEDS: ALBUMIN HUMAN 25%- 100 ML 100 ML IV ONE (16:04)
[2024-10-12] MEDS: LEXAPRO ONE (17:46)
--- NOTE | 2024-10-12 20:42 | PCM.PROG ---
Progress Note Progress Note for Day of Date of Exam: 10/12/24 Subjective Subjective: 74-year-old white male with right lower extremity cellulitis and a wound. History of elevated BNP. The patient developed a fever of 102.7 degrees Fahrenheit at approximately 4 a.m. Blood cultures were collected twice by nurses at that time. He remains confused this morning even after I stopped his scheduled Klonopin and hydrocodone yesterday. Patient was also found to be hyperkalemic with a potassium level of 5.8 which is slightly worse since yesterday which was 5.2. Clinical observations: 1. The patient appears confused and disoriented again this morning. 2. Reports hearing voices and seeing things that are not there. 3. The patient's spouse reports the patient was seeing things that were not there yesterday. 4. The patient was observed pointing at something on the bed that was not visible 5. Creatinine improved from 3.15 yesterday to 2.06 today 6. BUN improved from 112 yesterday to 162 today 7. Chest X-ray shows findings suggestive of elevated right diaphragm; left lung clear; heart partly obscured but not obviously enlarged 8. Albumin decreased from 2.2 yesterday to 2.1 today 9. Mild hypercalcemia with calcium at 10.2 10. Glucose 256 this morning 11. ESR 62 today, unchanged from yesterday 12. CRP increased from 177.1 yesterday to 212.2 today 13. Neutrophil count elevated at 13.9, up from 12.6 yesterday 14. White blood cell count increased from 16.8 yesterday to 17.3 today 15. Hemoglobin decreased from 10.9 yesterday to 10.5 today Past Medical Family Social History Past Med/Fam/Surg Hx: No changes since H&P Allergies: Allergies No Known Allergies Allergy (Verified 10/08/24 09:12) Review of Systems ROS: No change since H&P Vital Signs and I&O's Vital Signs: Vital Signs Temperature 98.3 F Temperature 98.3 F Temperature 98.7 F Pulse Rate [Left Radial] 90 Pulse Rate [Left Radial] 90 Pulse Rate [Left Radial] 86 Pulse Rate 90 Respiratory Rate 18 Respiratory Rate 18 Respiratory Rate 20 Respiratory Rate 20 Respiratory Rate 19 Respiratory Rate 20 Respiratory Rate 18 Respiratory Rate 20 Blood Pressure [Left Arm] 131/60 Blood Pressure [Left Arm] 131/60 Blood Pressure [Left Arm] 122/60 O2 Sat by Pulse Oximetry 95 O2 Sat by Pulse Oximetry 95 O2 Sat by Pulse Oximetry 95 O2 Sat by Pulse Oximetry 98 Intake and Output: Intake & Output 10/10/24 10/11/24 10/12/24 10/13/24 11:59 11:59 11:59 11:59 Intake Total 3970 / 3970 2703 / 2703 1866 / 1866 1687 / 1687 Output Total 3800 / 3800 500 / 500 3040 / 3040 1300 / 1300 Balance 170 / 170 2203 / 2203 -1174 / -1174 387 / 387 Physical Exam Oriented: Not Oriented Eyes: Normal Ear: Normal Nose: Normal Throat: Normal Respiratory: Normal Cardiovascular: Tachycardia : Other (RETENTION) Tenderness: Diffuse and Mild Skin: Decreased Turgur, Red, Tender, Wound and Other (Cellulitis right leg with circumferential ulceration above the ankle . no necrosis or abscess formation..) Musculoskeletal: Back:Thoracic, Back:Lumbar, Swelling and Motor Deficit Affect: Flat Speech Pattern: Clear and Appropriate Laboratory and Diagnostics 10/12/24 05:08 10/12/24 05:20 Labs: 10/09/24 13:52 Urine,Storm Port Urine Culture - Final 10/08/24 15:54 Leg - Right Wound Gram Stain - Final 10/08/24 15:54 Leg - Right Wound Culture - Final Pseudomonas Aeruginosa 10/08/24 13:15 Blood Blood Culture - Preliminary 10/08/24 13:08 Blood Blood Culture - Preliminary Laboratory WBC 17.3 X10^3/uL (3.6-10.0) H 10/12/24 05:08 RBC 3.31 X10^6/uL (4.7-6.0) L 10/12/24 05:08 Hgb 10.5 g/dL (13.5-18.0) L 10/12/24 05:08 Hct 31.5 % (42.0-54.0) L 10/12/24 05:08 MCV 95.4 fL (80.0-100.0) 10/12/24 05:08 MCH 31.9 pg (27.0-34.0) 10/12/24 05:08 MCHC 33.4 g/dL (33.0-35.0) 10/12/24 05:08 RDW 13.4 % (11.6-16.5) 10/12/24 05:08 Plt Count 443 X10^3/uL (150.0-450.0) 10/12/24 05:08 MPV 8.8 fL (7.4-11.0) 10/12/24 05:08 Neut % (Auto) 80.3 % (42.0-75.0) H 10/12/24 05:08 Lymph % (Auto) 8.3 % (21.0-51.0) L 10/12/24 05:08 [place] % (Auto) 10.0 % (0.0-13.0) 10/12/24 05:08 Eos % (Auto) 0.9 % (0.9-2.9) 10/12/24 05:08 Baso % (Auto) 0.5 % (0.2-1.0) 10/12/24 05:08 Neut # (Auto) 13.9 x10^3/uL (2.2-4.8) H 10/12/24 05:08 Lymph # (Auto) 1.4 X10^3/uL (1.3-2.9) 10/12/24 05:08 [place] # (Auto) 1.7 x10^3/uL (0.3-0.8) H 10/12/24 05:08 Eos # (Auto) 0.2 x10^3/uL (0.0-0.2) 10/12/24 05:08 Baso # (Auto) 0.1 X10^3/uL (0.0-0.1) 10/12/24 05:08 Absolute Nucleated RBC 0.0 /100WBC 10/12/24 05:08 ESR 62 MM/HOUR (0-15) H 10/12/24 05:08 Sodium 132 mmol/L (136-145) L 10/12/24 05:20 Corrected Sodium 136 mmol/L (136-145) 10/12/24 05:20 Potassium 5.8 mmol/L (3.5-5.1) H 10/12/24 05:20 Chloride 99 mmol/L (98-107) 10/12/24 05:20 Carbon Dioxide 28.2 mmol/L (21-32) 10/12/24 05:20 BUN 42 mg/dL (7-18) H 10/12/24 05:20 Creatinine 2.06 mg/dL (0.70-1.30) H 10/12/24 05:20 Est GFR (MDRD) Af Amer 41 (>60) L 10/12/24 05:20 Est GFR (MDRD) Non-Af 34 (>60) L 10/12/24 05:20 Glucose 275 mg/dL (65-99) H 10/12/24 05:20 POC Glucose (mg/dL) 298 mg/dL (65-99) H 10/12/24 19:29 Hemoglobin A1c > 16.0 % 10/09/24 05:23 Calcium 8.7 mg/dL (8.5-10.1) 10/12/24 05:20 Corrected Calcium 10.2 mg/dL (8.5-10.1) H 10/12/24 05:20 Magnesium 2.0 mg/dL (2.0-2.9) 10/11/24 05:47 Total Bilirubin 0.30 mg/dL (0.2-1.0) 10/12/24 05:20 AST 111 Units/L (15-37) H 10/12/24 05:20 ALT 53 Units/L (12-78) 10/12/24 05:20 Alkaline Phosphatase 218 Units/L (46-116) H 10/12/24 05:20 C-Reactive Protein 212.20 mg/L (0-3.0) H 10/12/24 05:20 B-Natriuretic Peptide 162 pg/mL (0-79) H 10/12/24 05:20 Total Protein 5.9 g/dL (6.4-8.2) L 10/12/24 05:20 Albumin 2.1 g/dL (3.4-5.0) L 10/12/24 05:20 Globulin 3.8 g/dL (2.5-4.5) 10/12/24 05:20 Albumin/Globulin Ratio 0.6 Ratio (1.1-2.1) L 10/12/24 05:20 Specimen Type Catherized urine 10/09/24 13:52 Urine Color Yellow (YELLOW) 10/09/24 13:52 Urine Appearance Slightly hazy (CLEAR) 10/09/24 13:52 Urine pH 5.0 (5.0 - 8.0) 10/09/24 13:52 Ur Specific [place] 1.015 (1.000-1.030) 10/09/24 13:52 Urine Protein 2+ (NEGATIVE) 10/09/24 13:52 Urine Glucose (UA) 4+ (NEGATIVE) 10/09/24 13:52 Urine Ketones Negative (NEGATIVE) 10/09/24 13:52 Urine Blood 5+ (NEGATIVE) 10/09/24 13:52 Urine Nitrite Negative (NEGATIVE) 10/09/24 13:52 Urine Bilirubin Negative (NEGATIVE) 10/09/24 13:52 Urine Urobilinogen Normal (NORMAL) 10/09/24 13:52 Ur Leukocyte Esterase Negative (NEGATIVE) 10/09/24 13:52 Urine RBC 10-20 /HPF (0-3) A 10/09/24 13:52 Urine WBC 0-2 /HPF (0-5) 10/09/24 13:52 Ur Squamous Epith Cells Few /HPF (NEGATIVE) 10/09/24 13:52 Amorphous Sediment 1+ /HPF (NEGATIVE) 10/09/24 13:52 Urine Bacteria 1+ /HPF (NEGATIVE) 10/09/24 13:52 Hyaline Casts Few /LPF (NEGATIVE) 10/09/24 13:52 Urine Mucus Few /HPF (NEGATIVE) 10/09/24 13:52 Ur Culture Indicated? Yes/culture set up 10/09/24 13:52 Acetone, Semi-Quant Small (NEGATIVE) H 10/08/24 10:52 Radiology Reviewed: Yes Plan (1) Hyperkalemia: Status: Acute Plan: 1. Kayexalate 15 g p.o. x 1 this evening. 2. Repeat CMP tomorrow morning to see if the patient's hyperkalemia has resolved. 3. Discontinued lisinopril 5 mg yesterday. (2) AMS (altered mental status): Status: Acute Plan: Given the patient's decreased renal function he may have to go another day for he completely clears out the Klonopin and opioids to see if his mental status is improved. (3) Hyponatremia: Status: Acute Narrative Support Text: Sodium level improved from 131 to 132 this morning. Plan: Continue normal saline IV hydration to correct the patient's hypona tremia. (4) Leukocytosis: Status: Acute Narrative Support Text: Worsening leukocytosis today as the patient's white blood cell count is at 17,300. Plan: Add gentamicin today for added coverage and increasing white blood cell count. (5) Urinary retention: Status: Acute (6) Acute renal failure (ARF): Status: Chronic Plan: 1. Pharmacy consultation to make sure all medications are renally dosed to help preserve the patient's baseline kidney function. 2. Repeat daily CMP's. 3. Continue slow IV hydration with normal saline. (7) Bilateral lower leg cellulitis: Status: Acute Plan: 1. Discontinue Rocephin 2. Start Ciprofloxacin 200 mg IV Q48 hours (pending pharmacy consult for renal dosing) 3. Continue topical silver sulfadiazine 4. Increase normal saline from 80 to 125 mL/hr 5. Daily BNAT to monitor fluid status 6. Daily ESR and CRP tests 7. Repeat BNP today and tomorrow 8. Daily chest x-rays to monitor for fluid overload 9. Pharmacy consult for medication review and renal dosing 10. Continue monitoring renal function and adjust medications as needed
[2024-10-12] MEDS: KAYEXALATE SUSP PO SCH (21:12)
[2024-10-13] MEDS: KLONOPIN TAB 0.5 MG PO PRN (04:15)
[2024-10-13 06:01] LABS: BASOPHILS # (AUTO) 0.1 X10^3/uL (0.0-0.1); BASOPHILS % (AUTO) 0.3 % (0.2-1.0); EOSINOPHILS # (AUTO) 0.3 x10^3/uL (0.0-0.2); EOSINOPHILS % (AUTO) 1.7 % (0.9-2.9); HEMATOCRIT 28.2 % (42.0-54.0); HEMOGLOBIN 9.4 g/dL (13.5-18.0); LYMPHOCYTES # (AUTO) 1.9 X10^3/uL (1.3-2.9); LYMPHOCYTES % (AUTO) 12.1 % (21.0-51.0); MEAN CORPUSCULAR HEMOGLOBIN 31.7 pg (27.0-34.0); MEAN CORPUSCULAR HGB CONC 33.4 g/dL (33.0-35.0); MEAN CORPUSCULAR VOLUME 94.7 fL (80.0-100.0); MEAN PLATELET VOLUME 8.7 fL (7.4-11.0); MONOCYTES # (AUTO) 1.4 x10^3/uL (0.3-0.8); NEUTROPHILS # (AUTO) 11.8 x10^3/uL (2.2-4.8); NEUTROPHILS % (AUTO) 76.9 % (42.0-75.0); PLATELET COUNT 420 X10^3/uL (150.0-450.0); RED BLOOD COUNT 2.98 X10^6/uL (4.7-6.0); RED CELL DISTRIBUTION WIDTH 13.2 % (11.6-16.5); WHITE BLOOD COUNT 15.3 X10^3/uL (3.6-10.0)
[2024-10-13 06:09] LABS: ERYTHROCYTE SEDIMENTATION RATE 63 MM/HOUR (0-15)
[2024-10-13 06:12] LABS: CALCIUM 8.8 mg/dL (8.5-10.1); CARBON DIOXIDE 29.7 mmol/L (21-32); COR CA(FOR HYPOALB) 10.4 mg/dL (8.5-10.1); CREATININE 1.68 mg/dL (0.70-1.30); TOTAL PROTEIN 5.6 g/dL (6.4-8.2)
[2024-10-13 06:19] LABS: POTASSIUM 5.3 mmol/L (3.5-5.1)
[2024-10-13 07:35] VITALS: RESP 19; TEMP 97.9
[2024-10-13] MEDS ORDERED: LEXAPRO ONE (07:44)
[2024-10-13] MEDS: MAXIPIME VIAL 1 GRAM 1 G in NS 50 ML IV 50 ML IV SCH (08:57)
[2024-10-13 09:42] VITALS: PULSE 95
[2024-10-13 11:51] VITALS: BP 127/66; O2SAT 95
--- NOTE | 2024-10-14 08:24 | RAD ---
EXAM: CHEST x-ray, 1 VIEW HISTORY: SOB - COMPARISON: X-ray 10/12/2024 FINDINGS: Persistent diminished lung volume is seen in the right hemithorax. There may be atelectasis medially in the right lung. Suggest further evaluation with contrast-enhanced chest CT to ensure no central mass. Left lung appears mostly clear. There is persistent minimal atelectasis of the left lung base . No pneumothorax is seen. IMPRESSION: Persistent volume loss in the right lung with abnormal density medially in the right hemithorax. Thi s could be atelectasis. A central obstructing mass cannot be excluded. Recommend further evaluation with contrast-enhanced chest CT. THIS IS AN ELECTRONICALLY VERIFIED FINAL REPORT 10/14/2024 8:21 AM - Electronically signed by Robert Cazares MD
== END 2024-10-13 15:00 | disposition home health service (06) ==
LOC: ER 08:55 → MED/SURG 08:55
PROVIDERS: ADMIT Internal Medicine; ATTEND Internal Medicine
DX: E87.1 Hypo-osmolality and hyponatremia; K59.09 Other constipation; W18.39XA Other fall on same level, initial encounter; L03.116 Cellulitis of left lower limb; S41.112A Laceration without foreign body of left upper arm, initial encounter; R06.02 Shortness of breath; L89.151 Pressure ulcer of sacral region, stage 1; L97.919 Non-pressure chronic ulcer of unspecified part of right lower leg with unspecified severity; R70.0 Elevated erythrocyte sedimentation rate; R79.82 Elevated C-reactive protein (CRP); N17.8 Other acute kidney failure; R26.89 Other abnormalities of gait and mobility; Y92.9 Unspecified place or not applicable; R29.6 Repeated falls; R60.0 Localized edema; R41.841 Cognitive communication deficit; Z59.89 Other problems related to housing and economic circumstances; B96.5 Pseudomonas (aeruginosa) (mallei) (pseudomallei) as the cause of diseases classified elsewhere; R44.1 Visual hallucinations; E03.8 Other specified hypothyroidism; N39.0 Urinary tract infection, site not specified; L03.115 Cellulitis of right lower limb; E11.65 Type 2 diabetes mellitus with hyperglycemia; J90 Pleural effusion, not elsewhere classified; I10 Essential (primary) hypertension; R53.1 Weakness; E87.5 Hyperkalemia; J44.9 Chronic obstructive pulmonary disease, unspecified; E11.622 Type 2 diabetes mellitus with other skin ulcer

== ENCOUNTER 2025-04-26 16:59 | Observation (INO) ==
[2025-04-26] MEDS: ZOFRAN INJ 4 MG VIAL IVP ONE (17:35)
[2025-04-26] MEDS: MORPHINE SULFATE INJ 2 MG INJ IVP ONE (17:35)
[2025-04-26 17:44] LABS: MEAN PLATELET VOLUME 7.5 fL (7.4-11.0); RED CELL DISTRIBUTION WIDTH 14.8 % (11.6-16.5)
[2025-04-26 17:52] LABS: COR CA(FOR HYPOALB) 13.2 mg/dL (8.5-10.1); CREATININE 1.64 mg/dL (0.70-1.30); eGFR NON BLACK RACES 44 (>60)
--- NOTE | 2025-04-26 18:47 | CT ---
EXAM: ABDOMEN/PELVIS W/O CON HISTORY: SACRAL WOUND INFECTION WITH TESTICULAR PAIN; COMPARISON: CT of the abdomen and pelvis with contrast March 10, 2025 TECHNIQUE: CT of the abdomen and pelvis without intravenous contrast FINDINGS: Sensitivity is reduced without intravenous contrast. There is airspace opacity and consolidation in the right lung base with air bronchograms visible and trace pleural fluid. Milder airspace infiltrates are visible in the left lung base. Multifocal coronary atherosclerotic calcifications are visible. The abdominal aorta tapers normally with multifocal atherosclerotic plaque. No liver mass. A large stone is present within the gallbladder which is contracted. Normal adrenal glands. Low-density right renal cortical cyst. No right renal stones. The right ureter tapers normally. No left renal stones. The left ureter tapers normally. Unremarkable spleen and pancreas for noncontrast study. The stomach is not obstructed. There is a large inspissated stool ball in the rectal vault spanning 8.1 cm AP dimension. There is a large volume of stool throughout the entirety of the colon consistent with constipation. No sign of appendicitis. The small bowel is not obstructed. There is an abnormal appearance of the urinary bladder. The urinary bladder wall is thickened with adjacent inflammatory stranding. A Storm catheter is present. Cystitis is suspected. No free air. There is mild stranding in the presacral soft tissues. There is a sacral decubitus ulcer present spanning transverse dimension of 6.7 cm. There is suspicious erosion involving the distal sacrum worrisome for possible concomitant osteomyelitis. Gas tracks from the ulcer to the level of the right inferior pubic ramus. 4 level posterior screw and oneal fusion of the lumbosacral spine is noted. Severe neural foraminal encroachment L5-S1 bilaterally. IMPRESSION: Fecal impaction of the rectal vault. Disimpaction advised. Severe colonic constipation without obstruction. Large sacral decubitus ulcer. Suspected osteomyelitis of the sacrum. Acute cystitis of the urinary bladder. Cholelithiasis. All CT scans at this facility use dose modulation, iterative reconstruction, and/or weight based dosing when appropriate to reduce radiation dose to as low as reasonably achievable. THIS IS AN ELECTRONICALLY VERIFIED FINAL REPORT 04/26/2025 6:43 PM - Electronically signed by Jam Fang MD
--- NOTE | 2025-04-26 20:35 | DR.SCROTAL ---
HPI Time Seen Time Seen by Provider: 04/26/25 17:16 PCP Primary Care Physician: MATTHEW Suresh HPI Comment HPI Comment: Patient with complaint of testicular pain that has occurred intermittently since become bedbound September 2024. Patient has sacral decubitus ulcer which is being treated with ampicillin 500 mg p.o. twice daily. Patient denies any fever at this time. Complaint Chief Complaint:: Pt c/o chronic testicular pain that has occurred intermittently since becoming bedbound in September 2024. Pt also has a sacral debubitus and is currently being treated with Ampicillin 500mg po BID x 10 days since 04/21/25 for a wound infection. Pt states that for the past two days his testicular pain has been different and constant. He describes the pain as constant sharp pain in nature. Self Treatment fo Chief Complaint: Pt took Tylenol #3 around noon with no improvement of his symptoms Source History Provided: Patient and EMS Mode of Arrival Mode of Arrival: EMS Timing Onset of Chief Complaint: 04/12/25 PMH PMH Past Medical History: Yes Past Medical History: Arthritis, COPD, Coronary Artery Disease, CVA, Diabetes, Gout, Hypertension, Hypothyroidism and [place] Past Surgical History: Yes Surgical History: Joint Replacement and Ortho Surgery Past Surgical History Comment: right cataract repair, bilateral tka, right shoulder surgery, lumbar fusion, cervical fusion, carpal tunnel Family History History of Family Medical Conditions: Yes Family Medical History: Heart Failure and Hypertension Social History Does patient currently use any type of tobacco product: No Have you used tobacco products in the last 12 months: No Type of Tobacco Use: None Does any household member use tobacco: No Alcohol Use: None Do you use any recreational Drugs:: No Lives With: Spouse Lives Where: Home Travel Risk Coronavirus risk:travel/contact w/high risk person: No Has patient experienced Coronavirus symptoms: No Infectious screening In the last 2 months have you had wt loss of >10#?: NO Have you had fever, night sweats or hemotysis?: No Have you traveled outside the country in the last 6 months?: No Isolation: Standard ROS Review of Systems Constitutional: No Symptoms Reported Eyes: No Symptoms Reported ENTM: No Symptoms Reported Respiratoy: No Symptoms Reported Cardiovascular: No Symptoms Reported Gastrointestinal/Abdominal: No Symptoms Reported Genitourinary: No Symptoms Reported Neurological: No Symptoms Reported and Pre-existing Deficit (Unchanged from previous) Musculoskeletal: No Symptoms Reported Integumentary: See HPI Hematologic/Lymphatic: No Symptoms Reported Endocrine: No Symptoms Reported Psychiatric: No Symptoms Reported All Other Systems: Reviewed and Negative PE Vital Signs Vitals: Vital Signs Temperature 98.1 F Pulse Rate 88 Respiratory Rate 20 Respiratory Rate 20 Blood Pressure 124/73 O2 Sat by Pulse Oximetry 94 General Limitations: No Limitations General Appearance: Alert and In No Apparent Distress Head Head Exam: Normal Inspection Eyes Eye exam: Normal Appearance ENT ENT Exam: Normal Exam Neck Neck Exam: Normal Inspection Chest Chest Inspection: Normal Inspection Respiratory Respiratory Exam: Normal Lung Sounds Bilat Respiratory Exam: Bilateral: Clear to Auscultation Cardiovascular Cardiovascular Exam: Regular Rate and Normal Rhythm Abdominal Exam Abdominal Exam: Normal Inspection, Normal Bowel Sounds and Soft Rectal Rectal Exam: Deferred Genitourinary Exam: Male: Deferred Extremities Extremities Exam: Normal Inspection Back Back Exam: Normal Inspection Neurological Neurological Exam: Alert and Oriented X3 Psychiatric Psychiatric Exam: Normal Affect and Normal Mood Skin Skin Exam: Warm, Dry, Intact, Normal Color and Other (Sacral decubitus ulcer.) COURSE Treatment Treatment: Patient with sacral decubitus ulcer and osteomyelitis on CT scan. Patient also shows constipation without obstruction and fecal impaction at the rectum. We discussed option of disimpaction and patient opted to try laxatives first. Consultation Called: 20:37 Consultation Comments: Discussed case with Dr. Miller and he is agreeable to admission. ROR Labs Reviewed Laboratory Results Reviewed?: Yes 04/26/25 17:26 04/26/25 17:26 Laboratory: WBC 10.3 X10^3/uL (3.6-10.0) H 04/26/25 17:26 RBC 3.10 X10^6/uL (4.7-6.0) L 04/26/25 17:26 Hgb 9.6 g/dL (13.5-18.0) L 04/26/25 17: Hct 28.8 % (42.0-54.0) L 04/26/25 17:26 MCV 93.0 fL (80.0-100.0) 04/26/25 17:26 MCH 31.1 pg (27.0-34.0) 04/26/25 17: MCHC 33.4 g/dL (33.0-35.0) 04/26/25 17:26 RDW 14.8 % (11.6-16.5) 04/26/25 17:26 Plt Count 506 X10^3/uL (150.0-450.0) H 04/26/25 17:26 MPV 7.5 fL (7.4-11.0) 04/26/25 17:26 Neut % (Auto) 70.6 % (42.0-75.0) 04/26/25 17:26 Lymph % (Auto) 17.3 % (21.0-51.0) L 04/26/25 17:26 [place] % (Auto) 8.2 % (0.0-13.0) 04/26/25 17:26 Eos % (Auto) 3.2 % (0.9-2.9) H 04/26/25 17:26 Baso % (Auto) 0.7 % (0.2-1.0) 04/26/25 17:26 Neut # (Auto) 7.3 x10^3/uL (2.2-4.8) H 04/26/25 17:26 Lymph # (Auto) 1.8 X10^3/uL (1.3-2.9) 04/26/25 17:26 [place] # (Auto) 0.9 x10^3/uL (0.3-0.8) H 04/26/25 17:26 Eos # (Auto) 0.3 x10^3/uL (0.0-0.2) H 04/26/25 17:26 Baso # (Auto) 0.1 X10^3/uL (0.0-0.1) 04/26/25 17:26 Absolute Nucleated RBC 0.0 /100WBC 04/26/25 17:26 Sodium 137 mmol/L (136-145) 04/26/25 17:26 Corrected Sodium TNP 04/26/25 17:26 Potassium 4.5 mmol/L (3.5-5.1) 04/26/25 17:26 Chloride 100 mmol/L (98-107) 04/26/25 17:26 Carbon Dioxide 32.6 mmol/L (21-32) H 04/26/25 17:26 BUN 33 mg/dL (7-18) H 04/26/25 17:26 Creatinine 1.64 mg/dL (0.70-1.30) H 04/26/25 17:26 Est GFR (MDRD) Af Amer 53 (>60) L 04/26/25 17:26 Est GFR (MDRD) Non-Af 44 (>60) L 04/26/25 17:26 Glucose 108 mg/dL (65-99) H 04/26/25 17:26 Calcium 12.3 mg/dL (8.5-10.1) H 04/26/25 17:26 Corrected Calcium 13.2 mg/dL (8.5-10.1) H 04/26/25 17:26 Total Bilirubin 0.20 mg/dL (0.2-1.0) 04/26/25 17:26 AST 13 Units/L (15-37) L 04/26/25 17:26 ALT 14 Units/L (12-78) 04/26/25 17:26 Alkaline Phosphatase 87 Units/L (46-116) 04/26/25 17:26 Total Protein 7.7 g/dL (6.4-8.2) 04/26/25 17:26 Albumin 2.9 g/dL (3.4-5.0) L 04/26/25 17:26 Globulin 4.8 g/dL (2.5-4.5) H 04/26/25 17:26 Albumin/Globulin Ratio 0.6 Ratio (1.1-2.1) L 04/26/25 17:26 Other Results Comments: Name: SHERON HOWELL : 1950 Sex: M Location: ER Order Number(s): [id number] Procedure(s):CT ABDOMEN/PELVIS W/O CON Ordering Physician: Harley Dolan Primary Care: [facility] Service Date: 04/26/25 Service Time: 1722 EXAM: ABDOMEN/PELVIS W/O CON HISTORY: SACRAL WOUND INFECTION WITH TESTICULAR PAIN; COMPARISON: CT of the abdomen and pelvis with contrast March 10, 2025 TECHNIQUE: CT of the abdomen and pelvis without intravenous contrast FINDINGS: Sensitivity is reduced without intravenous contrast. There is airspace opacity and consolidation in the right lung base with air bronchograms visible and trace pleural fluid. Milder airspace infiltrates are visible in the left lung base. Multifocal coronary atherosclerotic calcifications are visible. The abdominal aorta tapers normally with multifocal atherosclerotic plaque. No liver mass. A large stone is present within the gallbladder which is contracted. Normal adrenal glands. Low-density right renal cortical cyst. No right renal stones. The right ureter tapers normally. No left renal stones. The left ureter tapers normally. Unremarkable spleen and pancreas for noncontrast study. The stomach is not obstructed. There is a large inspissated stool ball in the rectal vault spanning 8.1 cm AP dimension. There is a large volume of stool throughout the entirety of the colon consistent with constipation. No sign of appendicitis. The small bowel is not obstructed. There is an abnormal appearance of the urinary bladder. The urinary bladder wall is thickened with adjacent inflammatory stranding. A Storm catheter is present. Cystitis is suspected. No free air. There is mild stranding in the presacral soft tissues. There is a sacral decubitus ulcer present spanning transverse dimension of 6.7 cm. There is suspicious erosion involving the distal sacrum worrisome for possible concomitant osteomyelitis. Gas tracks from the ulcer to the level of the right inferior pubic ramus. 4 level posterior screw and oneal fusion of the lumbosacral spine is noted. Severe neural foraminal encroachment L5-S1 bilaterally. IMPRESSION: Fecal impaction of the rectal vault. Disimpaction advised. Severe colonic constipation without obstruction. Large sacral decubitus ulcer. Suspected osteomyelitis of the sacrum. Acute cystitis of the urinary bladder. Cholelithiasis. All CT scans at this facility use dose modulation, iterative reconstruction, and/or weight based dosing when appropriate to reduce radiation dose to as low as reasonably achievable. THIS IS AN ELECTRONICALLY VERIFIED FINAL REPORT 04/26/2025 6:43 PM - Electronically signed by Jam Fang MD Opioid Opioid Risk Tool Age (Saul box if 16-45): No History of Preadolescent Sexual Abuse: No Total: 0 Total Score Risk Category: Low Risk Copyright: Hank SANCHEZ predicting aberrant behaviors Discharge Plan Diagnosis Discharge Problem: Osteomyelitis of sacrum, Constipation Discharge Plan Patient Disposition: 09 ADMITTED INPATIENT Condition: Stable Prescriptions: No Action levothyroxine 25 mcg tablet 25 mcg PO QDAY acetaminophen-codeine 300-30 mg tablet 1 tab PO TID MDD 3 tabs PRNQty: 14 0RF ampicillin 500 mg capsule 500 mg PO BID Rx Instructions: x 10 days - started on 04/21/25 Health Concerns: Post Hospitalization: new medications and changes needed to prevent readmission or further decline. Pt educated and given instructions on all concerns. Plan of Treatment: Continue with present treatment and follow up plan. Pt is to keep follow up appointment as instructed and take medications as ordered. Orders to Discharge Patient Discharge Orders: Transfer (Routine); Ordered 04/26/25 Ordered By: Harley Dolan Follow ups/Referrals Follow ups/Referrals: MARCEL CONNER [Primary Care Provider, MEDICAL] - 3 days Instructions Stand Alone Forms: Find Help Web Site, Post Hospital Follow Up Care Print Language: CAPE VERDEAN
[2025-04-26] MEDS ORDERED: NS 250 ML IV 25 ML IV PRN (20:43)
[2025-04-26] MEDS: ZOSYN VIAL 3.375 GRAMS 3.375 G in NS 100 ML IV 100 ML IV ONE (20:50)
[2025-04-26] MEDS: VANCOMYCIN IV *PREMIX 1 G/200 ML BAG 1 G/200 ML PIGGYBACK IV ONE (20:54)
[2025-04-26] MEDS ORDERED: TYLENOL 325 MG TAB PO PRN (22:02)
[2025-04-26] MEDS: NS 1,000 ML IV 1,000 ML IV SCH (23:27)
[2025-04-26] MEDS: GOLYTELY or GAVILYTE or Equivalent PO SCH (23:29)
[2025-04-26] MEDS: MORPHINE SULFATE INJ 2 MG INJ IVP PRN (23:31)
[2025-04-27] MEDS: VANCOMYCIN HCL 1 G in D5W 250 ML IV 250 ML IV ONE (01:03)
[2025-04-27 05:03] LABS: MEAN PLATELET VOLUME 8.1 fL (7.4-11.0); RED CELL DISTRIBUTION WIDTH 14.7 % (11.6-16.5)
[2025-04-27 05:16] LABS: COR CA(FOR HYPOALB) 13.1 mg/dL (8.5-10.1); COR NA(FOR HYPERGLY) 142.0 mmol/L (136-145); CREATININE 1.79 mg/dL (0.70-1.30); eGFR NON BLACK RACES 40.0 (>60)
[2025-04-27] MEDS: NS 250 ML IV 25 ML IV PRN (05:25)
[2025-04-27] MEDS: ZOSYN VIAL 3.375 GRAMS 3.375 G in NS 100 ML IV 100 ML IV SCH (05:25)
[2025-04-27] MEDS: SYNTHROID 25 mcg TAB PO SCH (06:18)
--- NOTE | 2025-04-27 08:12 | DR.H&P ---
H&P History & Physical for Day of: H&P Date: 04/26/25 Chief Complaint Chief Complaint: testicular pain History of Present Illness History of Present Illness: Pt c/o chronic testicular pain that has occurred intermittently since becoming bedbound in September 2024. Pt also has a sacral debubitus and is currently being treated with Ampicillin 500mg po BID x 10 days since 04/21/25 for a wound infection. Pt states that for the past two days his testicular pain has been different and constant. He describes the pain as constant sharp pain in nature. Past Medical History Past Medical History: Arthritis, COPD, Coronary Artery Disease, CVA, Diabetes, Gout, Hypertension, Hypothyroidism and [place] Past Surgical History Surgical History: Joint Replacement, Ortho Surgery and Other Family History Family Medical History: Coronary Artery Disease and Hypertension Social History Does patient currently use any type of tobacco product: No Have you used tobacco products in the last 12 months: No Type of Tobacco Use: None Does any household member use tobacco: No Alcohol Use: None Drug Use: None Medications Home Medications: Home Medications Medication Instructions Recorded Confirmed Type levothyroxine 25 mcg tablet 25 mcg PO QDAY 10/08/24 History ampicillin 500 mg capsule 500 mg PO BID 04/26/2504/26 History Allergies Allergies Allergy/AdvReac Type Severity Reaction Status Date / Time No Known Allergies Allergy Verified 04/26/25 18:12 Labs 04/27/25 04:13 04/27/25 04:13 Labs: Laboratory WBC 10.7 X10^3/uL (3.6-10.0) H 04/27/25 04:13 RBC 3.06 X10^6/uL (4.7-6.0) L 04/27/25 04:13 Hgb 9.3 g/dL (13.5-18.0) L 04/27/25 04:13 Hct 28.6 % (42.0-54.0) L 04/27/25 04:13 MCV 93.6 fL (80.0-100.0) 04/27/25 04:13 MCH 30.6 pg (27.0-34.0) 04/27/25 04:13 MCHC 32.7 g/dL (33.0-35.0) L 04/27/25 04:13 RDW 14.7 % (11.6-16.5) 04/27/25 04:13 Plt Count 509 X10^3/uL (150.0-450.0) H 04/27/25 04:13 MPV 8.1 fL (7.4-11.0) 04/27/25 04:13 Neut % (Auto) 66.4 % (42.0-75.0) 04/27/25 04:13 Lymph % (Auto) 18.6 % (21.0-51.0) L 04/27/25 04:13 [place] % (Auto) 9.7 % (0.0-13.0) 04/27/25 04:13 Eos % (Auto) 4.7 % (0.9-2.9) H 04/27/25 04:13 Baso % (Auto) 0.6 % (0.2-1.0) 04/27/25 04:13 Neut # (Auto) 7.1 x10^3/uL (2.2-4.8) H 04/27/25 04:13 Lymph # (Auto) 2.0 X10^3/uL (1.3-2.9) 04/27/25 04:13 [place] # (Auto) 1.0 x10^3/uL (0.3-0.8) H 04/27/25 04:13 Eos # (Auto) 0.5 x10^3/uL (0.0-0.2) H 04/27/25 04:13 Baso # (Auto) 0.1 X10^3/uL (0.0-0.1) 04/27/25 04:13 Absolute Nucleated RBC 0.1 /100WBC 04/27/25 04:13 Sodium 142 mmol/L (136-145) 04/27/25 04:13 Corrected Sodium 142 mmol/L (136-145) 04/27/25 04:13 Potassium 4.5 mmol/L (3.5-5.1) 04/27/25 04:13 Chloride 101 mmol/L (98-107) 04/27/25 04:13 Carbon Dioxide 35.3 mmol/L (21-32) H 04/27/25 04:13 BUN 33 mg/dL (7-18) H 04/27/25 04:13 Creatinine 1.79 mg/dL (0.70-1.30) H 04/27/25 04:13 Est GFR (MDRD) Af Amer 48 (>60) L 04/27/25 04:13 Est GFR (MDRD) Non-Af 40 (>60) L 04/27/25 04:13 Glucose 114 mg/dL (65-99) H 04/27/25 04:13 POC Glucose (mg/dL) 102 mg/dL (65-99) H 04/27/25 05:02 Calcium 12.0 mg/dL (8.5-10.1) H 04/27/25 04:13 Corrected Calcium 13.1 mg/dL (8.5-10.1) H 04/27/25 04:13 Total Bilirubin 0.20 mg/dL (0.2-1.0) 04/27/25 04:13 AST 14 Units/L (15-37) L 04/27/25 04:13 ALT 14 Units/L (12-78) 04/27/25 04:13 Alkaline Phosphatase 82 Units/L (46-116) 04/27/25 04:13 Total Protein 7.2 g/dL (6.4-8.2) 04/27/25 04:13 Albumin 2.6 g/dL (3.4-5.0) L 04/27/25 04:13 Globulin 4.6 g/dL (2.5-4.5) H 04/27/25 04:13 Albumin/Globulin Ratio 0.6 Ratio (1.1-2.1) L 04/27/25 04:13 Review of Systems Constitutional: Weakness Eyes: No Symptoms Reported ENT: No Symptoms Reported Respiratory: Shortness of Breath Cardiovascular: Edema Gastrointestinal: Nausea and Constipation Genitourinary: Incontinence and Other (testicular pain) Musculoskeletal: Back Pain and Leg Pain Skin: Wound Neurological: Weakness Physical Exam Vital Signs: Vital Signs Temperature 98.1 F Pulse Rate [Right Radial] 89 Respiratory Rate 21 Respiratory Rate 21 Respiratory Rate 21 Blood Pressure [Right Arm] 117/55 O2 Sat by Pulse Oximetry 96 Oriented: Person Eyes: Normal Ear: Normal Nose: Normal Throat: Dry Respiratory: Diminished Throughout Auscultation: Bowel Sounds: Normal Palpation: Normal Tenderness: Diffuse and Other (obese) Musculoskeletal: Back:Lumbar Psychiatric: Anxiety and Depression Affect: Anxious Speech Pattern: Appropriate Assessment/Plan (1) Osteomyelitis of sacrum: Status: Acute (2) Decubitus ulcer of sacral region, stage 3: Status: Acute Plan: ADMIT, IV ATBX WOUND CARE CONTROL, PAIN CONTROL BP MONITORING, BS CONTROL (3) Constipation: Status: Acute (4) Hyponatremia: Status: Acute (5) Hyperkalemia: Status: Acute
[2025-04-27] MEDS: PHARMACY CONSULT - VANCOMYCIN XX SCH (08:37)
[2025-04-27] MEDS: DAKINS SOLUTION FULL STRENGTH TOP SCH (10:27)
--- NOTE | 2025-04-27 13:21 | PCM.PROG ---
Progress Note Progress Note for Day of Date of Exam: 04/27/25 Subjective Subjective: PT IS 75 WM, ER ADMISSION WITH PERIRECTAL PAIN AND TESTICULAR PAIN. PT HAD A CT ON ADMISSION OF ABDOMEN AND PELVIS WITHOUT CONTRAST REVEALING:Fecal impaction of the rectal vault. Disimpaction advised.Severe colonic constipation without obstruction.Large sacral decubitus ulcer. Suspected osteomyelitis of the sacrum.Acute cystitis of the urinary bladder. PT IS CURRENTLY ON ZOSYN AND VACOMYCIN. PT HAS YET TO HAVE MUCH STOOL AFTER ENEMA AND GOLYTELY. PT WAS NPO THIS AM WITH A SURGICAL CONSULT FOR DR HOBBS FROM ER ADMISSION. PT IS BEDCONFINED WITH INDWELLING CONNOLLY CATHETER AND BILATERAL LOWER EXTREMITY WOUNDS. PT HAS HOME HEALTH. PT WBC 10.7, BUN 33, 1.79 Past Medical Family Social History Allergies: Allergies No Known Allergies Allergy (Verified 04/26/25 18:12) Vital Signs and I&O's Vital Signs: Vital Signs Temperature 97.9 F Temperature 97.8 F Pulse Rate [Right Radial] 74 Pulse Rate [Right Radial] 75 Pulse Rate 80 Respiratory Rate 20 Respiratory Rate 18 Respiratory Rate 19 Respiratory Rate 19 Respiratory Rate 19 Blood Pressure [Right Arm] 119/55 Blood Pressure [Right Arm] 128/71 O2 Sat by Pulse Oximetry 100 O2 Sat by Pulse Oximetry 96 O2 Sat by Pulse Oximetry 98 Intake and Output: Intake & Output 04/25/25 04/26/25 04/27/25 04/28/25 11:59 11:59 11:59 11:59 Intake Total 250 / 250 Output Total 1125 / 1125 Balance -875 / -875 Physical Exam Oriented: Person Eyes: Normal Ear: Normal Nose: Normal Throat: Dry Respiratory: Diminished Cardiovascular: Edema Auscultation: Bowel Sounds: Normal Tenderness: Diffuse and Other (obese) Skin: Wound (BILATERAL LOWER EXTREMITY ULCERATIONS WITH LOCALIZED REDNESS, LARGE SACRAL DECUBITUS) Musculoskeletal: Back:Lumbar Psychiatric: Anxiety and Depression Affect: Anxious Speech Pattern: Appropriate Laboratory and Diagnostics 04/27/25 04:13 04/27/25 04:13 Labs: Laboratory WBC 10.7 X10^3/uL (3.6-10.0) H 04/27/25 04:13 RBC 3.06 X10^6/uL (4.7-6.0) L 04/27/25 04:13 Hgb 9.3 g/dL (13.5-18.0) L 04/27/25 04:13 Hct 28.6 % (42.0-54.0) L 04/27/25 04:13 MCV 93.6 fL (80.0-100.0) 04/27/25 04:13 MCH 30.6 pg (27.0-34.0) 04/27/25 04:13 MCHC 32.7 g/dL (33.0-35.0) L 04/27/25 04:13 RDW 14.7 % (11.6-16.5) 04/27/25 04:13 Plt Count 509 X10^3/uL (150.0-450.0) H 04/27/25 04:13 MPV 8.1 fL (7.4-11.0) 04/27/25 04:13 Neut % (Auto) 66.4 % (42.0-75.0) 04/27/25 04:13 Lymph % (Auto) 18.6 % (21.0-51.0) L 04/27/25 04:13 [place] % (Auto) 9.7 % (0.0-13.0) 04/27/25 04:13 Eos % (Auto) 4.7 % (0.9-2.9) H 04/27/25 04:13 Baso % (Auto) 0.6 % (0.2-1.0) 04/27/25 04:13 Neut # (Auto) 7.1 x10^3/uL (2.2-4.8) H 04/27/25 04:13 Lymph # (Auto) 2.0 X10^3/uL (1.3-2.9) 04/27/25 04:13 [place] # (Auto) 1.0 x10^3/uL (0.3-0.8) H 04/27/25 04:13 Eos # (Auto) 0.5 x10^3/uL (0.0-0.2) H 04/27/25 04:13 Baso # (Auto) 0.1 X10^3/uL (0.0-0.1) 04/27/25 04:13 Absolute Nucleated RBC 0.1 /100WBC 04/27/25 04:13 Sodium 142 mmol/L (136-145) 04/27/25 04:13 Corrected Sodium 142 mmol/L (136-145) 04/27/25 04:13 Potassium 4.5 mmol/L (3.5-5.1) 04/27/25 04:13 Chloride 101 mmol/L (98-107) 04/27/25 04:13 Carbon Dioxide 35.3 mmol/L (21-32) H 04/27/25 04:13 BUN 33 mg/dL (7-18) H 04/27/25 04:13 Creatinine 1.79 mg/dL (0.70-1.30) H 04/27/25 04:13 Est GFR (MDRD) Af Amer 48 (>60) L 04/27/25 04:13 Est GFR (MDRD) Non-Af 40 (>60) L 04/27/25 04:13 Glucose 114 mg/dL (65-99) H 04/27/25 04:13 POC Glucose (mg/dL) 97 mg/dL (65-99) 04/27/25 10:52 Calcium 12.0 mg/dL (8.5-10.1) H 04/27/25 04:13 Corrected Calcium 13.1 mg/dL (8.5-10.1) H 04/27/25 04:13 Total Bilirubin 0.20 mg/dL (0.2-1.0) 04/27/25 04:13 AST 14 Units/L (15-37) L 04/27/25 04:13 ALT 14 Units/L (12-78) 04/27/25 04:13 Alkaline Phosphatase 82 Units/L (46-116) 04/27/25 04:13 Total Protein 7.2 g/dL (6.4-8.2) 04/27/25 04:13 Albumin 2.6 g/dL (3.4-5.0) L 04/27/25 04:13 Globulin 4.6 g/dL (2.5-4.5) H 04/27/25 04:13 Albumin/Globulin Ratio 0.6 Ratio (1.1-2.1) L 04/27/25 04:13 Plan (1) Osteomyelitis of sacrum: Status: Acute Plan: IV ATBX THERAPY PAIN CONTROL, WOUND CARE WITH SURGICAL CONSULT BS CONTROL, MRI L SPINE BOWEL REGIMEN (2) Sacral decubitus ulcer, stage IV: Status: Acute (3) Constipation: Status: Acute (4) Hyponatremia: Status: Acute (5) Hyperkalemia: Status: Acute (6) Diabetes: Status: Acute (7) Fecal impaction: Status: Acute
[2025-04-27] MEDS: TYLENOL #3 TAB (W/CODEINE) PO PRN (15:31)
[2025-04-27] MEDS: CONSULT PHARMACY - POTASSIUM & MAGNESIUM XX SCH (18:40)
[2025-04-27] MEDS: PHARMACY CONSULT XX SCH (18:40)
[2025-04-27] MEDS: VANCOMYCIN IV *PREMIX 1.75 G/350 ML BAG 1.75 G/350 ML PIGGYBACK IV SCH (21:25)
--- NOTE | 2025-04-28 06:29 | RAD ---
EXAM: KUB HISTORY: Constipation COMPARISON: CT abdomen 04/26/2025 FINDINGS: There is significant fecal retention and increase in fecal burden. There is no evidence for intestinal obstruction. No mass or visceral enlargement is noted. There is a 3 cm gallstone. Surgical fusion hardware is noted with laminectomy in the lumbosacral spine. IMPRESSION: Significant fecal retention consistent with constipation. THIS IS AN ELECTRONICALLY VERIFIED FINAL REPORT 04/28/2025 6:25 AM - Electronically signed by Goldy Rivera MD
[2025-04-28] MEDS ORDERED: ATIVAN INJ 2 MG VIAL IVP ONE (08:09)
[2025-04-28 08:42] LABS: MEAN PLATELET VOLUME 7.4 fL (7.4-11.0); RED CELL DISTRIBUTION WIDTH 14.4 % (11.6-16.5)
[2025-04-28 08:55] LABS: COR CA(FOR HYPOALB) 12.5 mg/dL (8.5-10.1); CREATININE 1.48 mg/dL (0.70-1.30); eGFR NON BLACK RACES 49 (>60)
[2025-04-28] MEDS: ATIVAN TAB 1 MG PO NR (08:57)
--- NOTE | 2025-04-28 13:10 | PCM.PROG ---
Progress Note Progress Note for Day of Date of Exam: 04/28/25 Subjective Subjective: PT IS 75 WM, ER ADMISSION WITH PERIRECTAL PAIN AND TESTICULAR PAIN DUE TO SEVERE FECAL IMPACTION. PT HAD A CT ON ADMISSION OF ABDOMEN AND PELVIS WITHOUT CONTRAST REVEALING:Fecal impaction of the rectal vault. Disimpaction advised .Severe colonic constipation without obstruction.Large sacral decubitus ulcer. Suspected osteomyelitis of the sacrum. Acute cystitis of the urinary bladder. PT IS CURRENTLY ON ZOSYN AND VACOMYCIN. . PT IS BED CONFINED WITH INDWELLING CONNOLLY CATHETER AND BILATERAL LOWER EXTREMITY WOUNDS. PT HAD MRI OF LSPINE ORDERED YESTERDAY AND HE REFUSED PROCEDURE AGAIN THIS AM. PT SPOUSE AT BEDSIDE AND WE DISCUSSED NEED FOR IV ATBX. PT IS TO HAVE ENEMA THIS AM AND CONNOLLY CATH REPLACED WITH URINE CULTURE ORDERED. PT STATES PAIN IS CONTROLLED WITH MORPHINE PRN. Past Medical Family Social History Allergies: Allergies No Known Allergies Allergy (Verified 04/26/25 18:12) Vital Signs and I&O's Vital Signs: Vital Signs Temperature 97.5 F Temperature 97.5 F Pulse Rate [Right Radial] 82 Pulse Rate [Right Radial] 74 Respiratory Rate 20 Respiratory Rate 20 Respiratory Rate 20 Respiratory Rate 20 Respiratory Rate 18 Respiratory Rate 18 Blood Pressure [Right Arm] 136/65 Blood Pressure [Right Arm] 127/61 O2 Sat by Pulse Oximetry 96 O2 Sat by Pulse Oximetry 97 Intake and Output: Intake & Output 04/26/25 04/27/25 04/28/25 04/29/25 11:59 11:59 11:59 11:59 Intake Total 250 / 250 673 / 673 Output Total 1125 / 1125 1550 / 1550 Balance -875 / -875 -877 / -877 Physical Exam Oriented: Person Eyes: Normal Ear: Normal Nose: Normal Throat: Dry Respiratory: Diminished Cardiovascular: Edema Auscultation: Bowel Sounds: Normal Tenderness: Diffuse and Other (obese) Skin: Wound (BILATERAL LOWER EXTREMITY ULCERATIONS WITH LOCALIZED REDNESS, LARGE SACRAL DECUBITUS) Musculoskeletal: Back:Lumbar Psychiatric: Anxiety and Depression Affect: Anxious Speech Pattern: Clear and Appropriate Laboratory and Diagnostics 04/28/25 08:35 04/28/25 08:35 Labs: 04/26/25 21:56 Sacral Wound Culture - Preliminary 04/26/25 21:56 Buttock Wound Culture - Preliminary Laboratory WBC 10.6 X10^3/uL (3.6-10.0) H 04/28/25 08:35 RBC 3.12 X10^6/uL (4.7-6.0) L 04/28/25 08:35 Hgb 9.5 g/dL (13.5-18.0) L 04/28/25 08:35 Hct 29.6 % (42.0-54.0) L 04/28/25 08:35 MCV 94.7 fL (80.0-100.0) 04/28/25 08:35 MCH 30.4 pg (27.0-34.0) 04/28/25 08:35 MCHC 32.0 g/dL (33.0-35.0) L 04/28/25 08:35 RDW 14.4 % (11.6-16.5) 04/28/25 08:35 Plt Count 430 X10^3/uL (150.0-450.0) 04/28/25 08:35 MPV 7.4 fL (7.4-11.0) 04/28/25 08:35 Neut % (Auto) 70.7 % (42.0-75.0) 04/28/25 08:35 Lymph % (Auto) 17.2 % (21.0-51.0) L 04/28/25 08:35 Blount % (Auto) 7.1 % (0.0-13.0) 04/28/25 08:35 Eos % (Auto) 4.3 % (0.9-2.9) H 04/28/25 08:35 Baso % (Auto) 0.7 % (0.2-1.0) 04/28/25 08:35 Neut # (Auto) 7.5 x10^3/uL (2.2-4.8) H 04/28/25 08:35 Lymph # (Auto) 1.8 X10^3/uL (1.3-2.9) 04/28/25 08:35 Blount # (Auto) 0.8 x10^3/uL (0.3-0.8) 04/28/25 08:35 Eos # (Auto) 0.5 x10^3/uL (0.0-0.2) H 04/28/25 08:35 Baso # (Auto) 0.1 X10^3/uL (0.0-0.1) 04/28/25 08:35 Absolute Nucleated RBC 0.5 /100WBC 04/28/25 08:35 Sodium 139 mmol/L (136-145) 04/28/25 08:35 Corrected Sodium TNP 04/28/25 08:35 Potassium 4.3 mmol/L (3.5-5.1) 04/28/25 08:35 Chloride 101 mmol/L (98-107) 04/28/25 08:35 Carbon Dioxide 32.9 mmol/L (21-32) H 04/28/25 08:35 BUN 31 mg/dL (7-18) H 04/28/25 08:35 Creatinine 1.48 mg/dL (0.70-1.30) H 04/28/25 08:35 Est GFR (MDRD) Af Amer 60 (>60) 04/28/25 08:35 Est GFR (MDRD) Non-Af 49 (>60) L 04/28/25 08:35 Glucose 106 mg/dL (65-99) H 04/28/25 08:35 POC Glucose (mg/dL) 91 mg/dL (65-99) 04/28/25 11:05 Calcium 11.5 mg/dL (8.5-10.1) H 04/28/25 08:35 Corrected Calcium 12.5 mg/dL (8.5-10.1) H 04/28/25 08:35 Total Bilirubin 0.30 mg/dL (0.2-1.0) 04/28/25 08:35 AST 14 Units/L (15-37) L 04/28/25 08:35 ALT 14 Units/L (12-78) 04/28/25 08:35 Alkaline Phosphatase 84 Units/L (46-116) 04/28/25 08:35 Total Protein 6.3 g/dL (6.4-8.2) L 04/28/25 08:35 Albumin 2.7 g/dL (3.4-5.0) L 04/28/25 08:35 Globulin 3.6 g/dL (2.5-4.5) 04/28/25 08:35 Albumin/Globulin Ratio 0.8 Ratio (1.1-2.1) L 04/28/25 08:35 Specimen Type Cancelled 04/28/25 10:30 Urine Color Cancelled 04/28/25 10:30 Urine Appearance Cancelled 04/28/25 10:30 Urine pH Cancelled 04/28/25 10:30 Ur Specific Manning Cancelled 04/28/25 10:30 Urine Protein Cancelled 04/28/25 10:30 Urine Glucose (UA) Cancelled 04/28/25 10:30 Urine Ketones Cancelled 04/28/25 10:30 Urine Blood Cancelled 04/28/25 10:30 Urine Nitrite Cancelled 04/28/25 10:30 Urine Bilirubin Cancelled 04/28/25 10:30 Urine Urobilinogen Cancelled 04/28/25 10:30 Ur Leukocyte Esterase Cancelled 04/28/25 10:30 Resp Viral Panel (PCR) See scanned report 04/26/25 22:23 Plan (1) Osteomyelitis of sacrum: Status: Acute Plan: IV ATBX THERAPY PAIN CONTROL, WOUND CARE WITH SURGICAL CONSULT BS CONTROL, MRI L SPINE BOWEL REGIMEN (2) Sacral decubitus ulcer, stage IV: Status: Acute (3) Constipation: Status: Acute (4) Hyponatremia: Status: Acute (5) Hyperkalemia: Status: Acute (6) Diabetes: Status: Acute (7) Fecal impaction: Status: Acute
[2025-04-28] MEDS: ZOFRAN INJ 4 MG VIAL IVP PRN (13:22)
[2025-04-28 13:32] LABS: BLOOD/HEMOGLOBIN,URINE 1+ (NEGATIVE); LEUKOCYTE ESTERASE ,URINE 2+ (NEGATIVE); NITRITES,URINE NEGATIVE (NEGATIVE)
[2025-04-28 13:39] LABS: APPEARANCE,URINE HAZY (CLEAR)
[2025-04-28 13:40] LABS: SQUAMOUS EPITHELIAL CELL,UR RARE /HPF (NEGATIVE)
--- NOTE | 2025-04-28 14:11 | DR.CONSULT ---
CONSULT Consultation for Day of: Date: 04/27/25 Chief Complaint Chief Complaint: Testicular pain, consultation for old sacral decubitus. Allergies Allergies Allergy/AdvReac Type Severity Reaction Status Date / Time No Known Allergies Allergy Verified 04/26/25 18:12 History of Present Illness History of Present Illness: This is a 75-year-old male bed ridden since ap proximately September 2024 who was seen by me originally in early October 2024 for a large buttock and sacral decubitus. Patient has remained bedridden. Patient has had recent testicular pain on p.o. antibiotics but not resolved. Patient admitted for treatment of this and CT scan showed evidence of possible osteomyelitis of the sacrum. Past Medical History Past Medical History: Arthritis, COPD, Coronary Artery Disease, CVA, Diabetes, Gout, Hypertension, Hypothyroidism and [place] Past Surgical History Surgical History: Joint Replacement, Ortho Surgery and Other Family History Family Medical History: Coronary Artery Disease and Hypertension Social History Does patient currently use any type of tobacco product: No Have you used tobacco products in the last 12 months: No Type of Tobacco Use: None Does any household member use tobacco: No Alcohol Use: None Drug Use: None Medications Home Medications: No Known Allergies Allergy (Verified 04/26/25 18:12) CONTINUE taking the following medications ampicillin 500 mg capsule 500 mg PO BID 04/26/25 [History] New Prescriptions vancomycin 1.5 gram intravenous solution 1.5 g IV Q24H 42 days #42 ea 04/28/25 [Rx] Review of Systems Constitutional: See HPI Eyes: No Symptoms Reported ENT: No Symptoms Reported Respiratory: No Symptoms Reported Cardiovascular: No Symptoms Reported Gastrointestinal: No Symptoms Reported Genitourinary: No Symptoms Reported Musculoskeletal: No Symptoms Reported Skin: See HPI (Large sacral decubitus) Neurological: Other (Patient bed ridden. No diagnosis of neurological problem probably just related to obesity and age and overall diminishing strength) Physical Exam Vital Signs: Vital Signs Temperature 97.5 F Temperature 97.5 F Pulse Rate [Right Radial] 82 Pulse Rate [Right Radial] 74 Respiratory Rate 20 Respiratory Rate 20 Respiratory Rate 20 Respiratory Rate 20 Respiratory Rate 18 Blood Pressure [Right Arm] 136/65 Blood Pressure [Right Arm] 127/61 O2 Sat by Pulse Oximetry 96 O2 Sat by Pulse Oximetry 97 Oriented: Normal, Time, Person and Place Eyes: Normal Ear: Normal Nose: Normal Throat: Normal Respiratory: Clear Throughout Cardiovascular: Normal : Normal Auscultation: Bowel Sounds: Normal Palpation: Normal Tenderness: Normal Skin: Wound (18 x 15 x 1.5 cm wound to the sacrum with granulation tissue. No necrotic tissue, small amount of exudate otherwise looks good. No exposed bone. CT scan does show evidence of possible osteomyelitis of the sacrum.) Musculoskeletal: Motor Deficit (Patient bedridden due to overwhelming weakness.) Psychiatric: Normal Mood Description: Calm Affect: Normal Speech Pattern: Clear and Appropriate Plan (1) Osteomyelitis of sacrum: Status: Acute Plan: Patient required a surgical debridement at this time. With possible osteomyelitis of the sacrum would recommend infectious disease consultation. I believe surgery is not indicated at this time (2) Sacral decubitus ulcer, stage IV: Status: Acute Plan: As above (3) Constipation: Status: Acute (4) Hyponatremia: Status: Acute (5) Hyperkalemia: Status: Acute (6) Diabetes: Status: Acute (7) Fecal impaction: Status: Acute
--- NOTE | 2025-04-28 15:41 | NOTE.SOAP ---
Soap Note Note for Day of Date of Exam: 04/28/25 Subjective Data Subjective Data: Patient remained stable. Afebrile. Receiving antibiotics. Dressing changes being performed of the sacral wound. Objective Data Temperature: 97.5 F Pulse Rate: 82 Respiratory Rate: 20 Blood Pressure: 136/65 O2 Sat by Pulse Oximetry: 96 Objective Data: Exam unchanged, white blood cell count equals 10.6 Assessment Assessment: Chronic sacral decubitus with question osteomyelitis of the sacrum. Plan Plan: Continue current dressing changes of the sacrum. Relieve pressure as best can because he is supine and bed ridden. Recommend infectious disease consultation.
--- NOTE | 2025-04-28 17:56 | DR.UPDATE ---
H&P Update Prescription drug monitoring program results: PDMP was not reviewed H&P Reviewed: Yes Any changes to H&P?: No Patient was examined?: Yes Vital Signs: Temp Pulse Pulse Resp BP BP Pulse Ox 04/28/25 16:00 97.9 F 77 20 135/67 97 04/28/25 15:41 97.5 F L 82 20 136/65 96 04/28/25 15:15 20 04/28/25 14:15 20 04/28/25 12:00 97.5 F L 82 20 136/65 96 04/28/25 09:45 20 04/28/25 09:15 20 04/28/25 09:05 04/28/25 08:00 97.5 F L 74 20 127/61 97 04/28/25 07:00 04/28/25 06:56 18 04/28/25 05:56 18 04/28/25 03:31 98.1 F 83 19 134/63 97 04/28/25 01:36 18 04/28/25 00:36 18 04/27/25 23:19 97.8 F 75 19 135/64 95 04/27/25 23:02 18 04/27/25 22:32 18 04/27/25 21:10 84 99 04/27/25 21:10 04/27/25 20:00 97.8 F 73 18 110/51 99 04/27/25 19:00 04/27/25 18:46 18 04/27/25 18:16 20 04/27/25 16:31 20 04/27/25 16:00 97.9 F 79 17 127/60 90 L 04/27/25 15:31 20 04/27/25 12:59 20 04/27/25 12:29 20 04/27/25 12:00 97.9 F 74 18 119/55 100 04/27/25 08:34 19 04/27/25 08:30 80 96 04/27/25 08:30 04/27/25 08:05 19 04/27/25 08:00 97.8 F 75 19 128/71 98 04/27/25 07:00 04/27/25 04:44 21 04/27/25 04:14 21 04/27/25 03:45 98.1 F 89 21 117/55 96 04/27/25 00:01 18 04/27/25 00:00 98.2 F 80 21 136/56 96 04/26/25 23:31 18 04/26/25 22:55 96 04/26/25 22:47 98.1 F 89 24 111/56 92 L 04/26/25 21:50 04/26/25 21:09 04/26/25 17:35 20 04/26/25 16:59 98.1 F 88 20 124/73 94 L O2 Del Method O2 Flow Rate FiO2 04/28/25 16:00 Nasal Cannula 4 04/28/25 15:41 04/28/25 15:15 04/28/25 14:15 04/28/25 12:00 Nasal Cannula 4 04/28/25 09:45 04/28/25 09:15 04/28/25 09:05 Nasal Cannula 4 36 04/28/25 08:00 Nasal Cannula 4 04/28/25 07:00 Nasal Cannula 4 04/28/25 06:56 04/28/25 05:56 04/28/25 03:31 Nasal Cannula 4 04/28/25 01:36 04/28/25 00:36 04/27/25 23:19 Nasal Cannula 4 04/27/25 23:02 04/27/25 22:32 04/27/25 21:10 04/27/25 21:10 Nasal Cannula 4 36 04/27/25 20:00 Nasal Cannula 4 04/27/25 19:00 Nasal Cannula 4 04/27/25 18:46 04/27/25 18:16 04/27/25 16:31 04/27/25 16:00 Nasal Cannula 4 04/27/25 15:31 04/27/25 12:59 04/27/25 12:29 04/27/25 12:00 Nasal Cannula 4 04/27/25 08:34 04/27/25 08:30 04/27/25 08:30 Nasal Cannula 4 36 04/27/25 08:05 04/27/25 08:00 Nasal Cannula 4 04/27/25 07:00 Nasal Cannula 4 04/27/25 04:44 04/27/25 04:14 04/27/25 03:45 Nasal Cannula 4 04/27/25 00:01 04/27/25 00:00 Nasal Cannula 4 04/26/25 23:31 04/26/25 22:55 Nasal Cannula 4 04/26/25 22:47 Nasal Cannula 4 04/26/25 21:50 Nasal Cannula 4 36 04/26/25 21:09 Nasal Cannula 4 04/26/25 17:35 04/26/25 16:59 Procedures (ALL) - Central Line Placement PCM.CLCO: written consent Time out performed: Yes Patient placed pm monitor/pulse ox: Yes MD prep: mask, gown, gloves, other Centrial line prep: chlorhexidine scrub, sterile drapes applied Local anesthsia used: lidocane 1% Ultrasound used for placement: Yes (right basilic id'd via u/s and cannulation vis) Central line lumen ininserted: double (5.5fr arrowgard. trimmed to 50cm with 5cm exposed) Post procedure: good blood return, all ports aspirated, flushed,capped, sterile dressing applied Post procedure xray: tip oc catheter in good position (appears svc; radiologist report pending) Patient tolerated procedure: Yes Complications: none
[2025-04-28 20:27] VITALS: BMI 29.6
--- NOTE | 2025-04-29 01:50 | RAD ---
EXAM: CHEST, 1 VIEW HISTORY: PICC line placement; COMPARISON: None. TECHNIQUE: FINDINGS: Right PICC line placement with tip in the distal SVC. Left basilar airspace opacities representing atelectasis edema versus pneumonia. No pneumothorax. IMPRESSION: Findings as above THIS IS AN ELECTRONICALLY VERIFIED FINAL REPORT 04/29/2025 1:46 AM - Electronically signed by MD BERNABE Siddiqi
[2025-04-29 04:45] VITALS: TEMP 97.9
[2025-04-29 05:29] LABS: MEAN PLATELET VOLUME 8.1 fL (7.4-11.0); RED CELL DISTRIBUTION WIDTH 14.0 % (11.6-16.5)
[2025-04-29 05:36] LABS: COR CA(FOR HYPOALB) 12.6 mg/dL (8.5-10.1); CREATININE 1.37 mg/dL (0.70-1.30); eGFR NON BLACK RACES 54 (>60)
[2025-04-29 07:56] VITALS: BP 139/67; PULSE 78; O2SAT 100
[2025-04-29] MEDS: LASIX IVP ONE (08:52)
[2025-04-29] MEDS ORDERED: [UNRECOGNIZED DRUG - OTHER] IV SCH (10:00)
[2025-04-29] MEDS ORDERED: NS IV SCH (10:00)
[2025-04-29] MEDS: NS IV SCH (10:12)
[2025-04-29] MEDS: TOBRAMYCIN SULFATE IV SCH (10:12)
[2025-04-29 14:52] VITALS: RESP 18
[2025-04-30] MEDS ORDERED: PHARMACY COMMENT IV NR (20:00)
== END 2025-04-29 13:30 | disposition home health service (06) ==
LOC: MED/SURG 16:59 → ER 16:59 → MED/SURG 21:24
PROVIDERS: ADMIT Family Medicine; ATTEND Internal Medicine
DX: M46.28 Osteomyelitis of vertebra, sacral and sacrococcygeal region; Z16.29 Resistance to other single specified antibiotic; B95.7 Other staphylococcus as the cause of diseases classified elsewhere; J44.9 Chronic obstructive pulmonary disease, unspecified; N50.819 Testicular pain, unspecified; Z16.19 Resistance to other specified beta lactam antibiotics; I25.10 Atherosclerotic heart disease of native coronary artery without angina pectoris; Z86.19 Personal history of other infectious and parasitic diseases; Z74.01 Bed confinement status; E88.09 Other disorders of plasma-protein metabolism, not elsewhere classified; E87.5 Hyperkalemia; B96.1 Klebsiella pneumoniae [K. pneumoniae] as the cause of diseases classified elsewhere; L89.154 Pressure ulcer of sacral region, stage 4; E03.8 Other specified hypothyroidism; Z86.73 Personal history of transient ischemic attack (TIA), and cerebral infarction without residual deficits; I10 Essential (primary) hypertension; E11.65 Type 2 diabetes mellitus with hyperglycemia; Z99.81 Dependence on supplemental oxygen; E83.51 Hypocalcemia; L89.319 Pressure ulcer of right buttock, unspecified stage; Z16.11 Resistance to penicillins; Z16.12 Extended spectrum beta lactamase (ESBL) resistance; B96.83 Acinetobacter baumannii as the cause of diseases classified elsewhere; N30.00 Acute cystitis without hematuria; I25.2 Old myocardial infarction; Z29.89 Encounter for other specified prophylactic measures; E87.1 Hypo-osmolality and hyponatremia; K56.41 Fecal impaction; B96.29 Other Escherichia coli [E. coli] as the cause of diseases classified elsewhere; R26.89 Other abnormalities of gait and mobility